=== PATIENT | male | born 1985 | race Caucasian/White ===

== ENCOUNTER 2023-09-17 12:00 | Emergency (ER) | payer MEDICAID, SELFPAY ==
--- NOTE | ~2023-09-17 | CT_ITS ---
EXAMINATION: CT ABDOMEN AND PELVIS WITHOUT CONTRAST CLINICAL INFORMATION: Left flank pain COMPARISON: None available. TECHNIQUE: Multidetector volumetric imaging was performed from the superior aspect of the liver through the pubic symphysis. Sagittal and coronal reformatted images were obtained on the technologist's workstation. This CT examination was performed using dose optimization techniques as appropriate, variously including the following: *Automated exposure control *Adjustment of mA and/or kV according to patient size (this includes techniques or standardized protocols for targeted exams where dose is matched to indication/reason for exam; i.e. extremities or head) *Use of iterative reconstruction technique DLP: 470 mGy-cm FINDINGS: LUNG BASES: The visualized lung bases are unremarkable. LIVER, GALLBLADDER, AND BILIARY TREE: The liver is normal in size, shape, and attenuation. No focal hepatic lesion or biliary ductal dilatation is present. The gallbladder is not visualized. PANCREAS: Unremarkable. SPLEEN: Unremarkable. ADRENAL GLANDS: Unremarkable. KIDNEYS AND URETERS: The kidneys are normal in size, shape, and attenuation. No hydronephrosis, hydroureter, or calculi seen. No perinephric stranding. BLADDER: There is a 2 mm radiopaque calculi left UVJ junction. Without hydroureteronephrosis. The bladder is nondistended. GASTROINTESTINAL TRACT: Scattered stool and gas seen throughout the colon without significant distention. The small bowel loops are normal caliber. Appendix is normal caliber. ABDOMINAL WALL: No significant hernia is appreciated. LYMPH NODES: Normal. VASCULAR: Unremarkable. PELVIC VISCERA: Unremarkable. OSSEOUS STRUCTURES: No aggressive lytic or sclerotic process seen. CT/CT abdomen pelvis wo IV con IMPRESSION: 2 mm left UVJ radiopaque calculi without hydroureteronephrosis and likely cause for left flank pain. Mild constipation. Fleischner guidelines were followed.
[2023-09-17 12:54] VITALS: BP 158/97; PULSE 75; RESP 18; TEMP 37; O2SAT 97; BMI 27.5
--- NOTE | 2023-09-17 13:11 | ED.MALEGU ---
HPI - Male Genitourinary General Chief complaint: Urogenital-Male Stated complaint: R Side Kidney Pain ?UTI Time Seen by Provider: 09/17/23 21:01 Source: patient Mode of arrival: ambulatory Limitations: no limitations History of Present Illness HPI Narrative: Patient comes to the emergency room complaining of intermittent left flank pain. Patient only speaks [place]an. 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 Patient states that for the last 2 days, he has had dysuria, no hematuria, intermittent flank pain and left lower quadrant. Patient denies any testicular pain. Patient denies any concerns with sexually transmitted diseases as he is not sexually active. Patient denies fever or chills. Related Data Previous Rx's Medication Instructions Recorded ketorolac 10 mg tablet 10 mg PO TID PRN pain 5 days #12 09/17/23 tabs ondansetron HCl 4 mg tablet 4 mg PO Q6H PRN nausea and 09/17/23 vomiting #12 tabs prednisone 10 mg tablet 10 mg PO DAILY #3 tabs 09/17/23 tamsulosin 0.4 mg capsule 0.4 mg PO DAILY #14 caps 09/17/23 Allergies Allergy/AdvReac Type Severity Reaction Status Date / Time No Known Allergies Allergy Verified 09/17/23 12:53 Review of Systems Review of Systems: Constitutional : No Weight loss, No Fever, No Chills, No Night Sweats, No Fatigue, No Malaise ENT/Mouth : No Hearing loss, No Ear Pain, No Nasal Congestion, No Sinus Pain, No Hoarseness, No sore throat, No Rhinorrhea, No Swallowing Difficulty Eyes: No Eye Pain, No Swelling, No Redness, No Foreign Body, No Discharge, No Vision Changes Cardiovascular : No Chest Pain, No SOB, No Dyspnea on Exertion, No Orthopnea, No Edema, No Palpitations Respiratory : No Cough, No Sputum, No Wheezing, No Smoke Exposure, No Dyspnea Gastrointestinal : No Nausea, No Vomiting, No Diarrhea, No Constipation, No abdominal Pain, No Hematochezia, No Melena Genitourinary complaining of Dysuria, No Urinary Frequency, No Hematuria, No Urinary Incontinence, No Urgency, complaining of intermittent left Flank Pain, No Urinary Flow Changes, No Hesitancy Musculoskeletal : No joint pain, No Myalgias, No Joint Swelling Skin : No Skin Lesions, No rash Neuro : No Weakness, No Numbness, No Paresthesias, No Loss of Consciousness, No Dizziness, No Headache Psych : No Anxiety/Panic, No Depression, No SI/HI/AH/VH, No Social Issues, Heme/Lymph: No Bruising, No Bleeding,No Lymphadenopathy Endocrine : No Polyuria, No Polydipsia, No Temperature Intolerance [facility] Past Medical History Medical History (Updated 09/17/23 @ 21:25 by Adriana Arnold MD) Hereditary spherocytosis Surgical History (Updated 09/17/23 @ 21:25 by Adriana Arnold MD) History of cholecystectomy H/O splenectomy Physical Exam Vital Signs: Vital Signs: Last Vital Signs Temp 98.3 F 09/17/23 19:35 Pulse 60 09/17/23 19:35 Resp 14 09/17/23 19:35 BP 153/88 H 09/17/23 19:35 Pulse Ox 97 09/17/23 19:35 O2 Del Method Room Air 09/17/23 19:35 BMI result Body Mass Index 27.5 Const: Other: Appearance: Alert. Oriented X3. No acute distress. Well-appearing Eyes: Pupils equal, round and reactive to light. ENT: Pharynx normal. Neck: Normal inspection. Neck supple. No lymph nodes noted. No crepitus CVS: Normal heart rate and rhythm. Pulses normal. Normal S1 and S2 Respiratory: No respiratory distress. Breath sounds normal. No Wheezing. No rales Abdomen: Soft and nontender. No rigidity. No distention. No abdominal pain, no left flank pain at this time Skin: Skin warm and dry. Normal skin color. Normal skin turgor. Extremities: No lower extremity edema. No Lacerations. No Rash Neuro: Oriented X 3. No motor deficit. No sensory deficit. Moving all extremities. No slurred speech. CN 2 through 12 grossly intact Psych: calm, cooperative, normal affect Course Course Course Narrative: This is an RME: Additional HPI, ROS, PE not included below will be deferred to primary provider. This is a 38-year-old male presenting to the emergency department with complaints of pain with urination which started this morning. Also reporting left flank pain. No blood in urine, no history of urinary tract infections. + left sided flank pain. Vital signs stable. Patient is nontoxic appearing. Plan labs, UA, CT abdomen and pelvis. [place] heavy duty press operator (James) [phone] Medical Decision Making Medical Decision Making [facility] Narrative: -my interpretation of labs: A white blood cell count is slightly elevated, likely secondary to reactive leukocytosis. Urinalysis negative for UTI. -my interpretation of CT scan: Positive for stone in the left UVJ -patient was given IM Toradol -patient instructed to follow-up with his primary care physician and Urology Differential Diagnosis Differential Diagnoses: The differential diagnosis associated with the presentation includes (Kidney stone, renal colic, diverticulitis, musculoskeletal pain) Admission/Observation Consideration of admission/observation: Escalation of care including admission/observation considered (Given patient's presentation and history, admission was considered on arrival) Lab Data [facility] Lab Attestation statement: I reviewed the patient's lab results. 09/17/23 15:23 09/17/23 15:23 Labs: Lab Results 09/17/23 Range/Units 15:23 WBC 12.8 H (4.8-10.8) X10*3/uL RBC 5.94 H (4.60-5.80) X10*6/uL Hgb 16.7 (14.0-18.0) g/dl Hct 48.4 (42.0-52.0) % MCV 81.5 (80.0-98.0) fL MCH 28.1 (27.0-33.0) pg MCHC 34.5 (31.0-36.0) g/dl RDW 12.7 (11.0-16.0) % Plt Count 439 H (160-400) X10*3/uL MPV 10.1 (9.4-12.4) fL Immature Gran % (Auto) 0.6 H (0.0-0.4) % Neut % (Auto) 60.0 (45-73) % Lymph % (Auto) 29.2 (20-40) % [place] % (Auto) 8.9 (2-11) % Eos % (Auto) 0.5 (0-4) % Baso % (Auto) 0.8 (0-2) % Lymph # (Auto) 3.7 (1.2-4.9) X10*3/uL [place] # (Auto) 1.1 (0.1-1.2) X10*3/uL Eos # (Auto) 0.1 (0.0-0.4) X10*3/uL Baso # (Auto) 0.1 (0.0-0.2) X10*3/uL Abs Immat Gran (auto) 0.08 H (0.00-0.03) X10*3/uL Absolute Neuts (auto) 7.7 (2.0-8.3) x10*3/uL Absolute Nucleated RBC 0.000 (0.0-0.012) X10*3/uL Nucleated RBC % (auto) 0.0 (0.0-0.2) /100WBC Sodium 141 (135-145) mmol/L Potassium 4.2 (3.3-5.1) mmol/L Chloride 108 (96-108) mmol/L Carbon Dioxide 28 (22-29) mmol/L Anion Gap 9 L (12-20) BUN 11 (9-16) mg/dL Creatinine 0.83 (0.5-1.4) mg/dL Estim Creat Clear Calc 119.5 Estimated GFR > 60 Random Glucose 98 (60-115) mg/dL Calcium 9.6 (8.4-10.2) mg/dL Total Bilirubin 1.3 H (0.0-1.0) mg/dL Direct Bilirubin 0.4 (0.0-0.5) mg/dL AST 25 (5-37) U/L ALT 33 (0-40) U/L Alkaline Phosphatase 86 (39-117) U/L Total Protein 7.7 (6.5-8.0) g/dL Albumin 4.4 (3.5-5.0) g/dL Lipase 16 (8-78) U/L Urine Color Yellow Urine Appearance Clear Urine pH 6.0 (5.0-9.0) Ur Specific [place] 1.015 (1.005-1.025) Urine Protein Negative (Neg-Trace) mg/dL Urine Glucose (UA) Negative (Negative) mg/dL Urine Ketones Negative (Negative) mg/dL Urine Blood Negative (Negative) Urine Nitrite Negative (Negative) Ur Leukocyte Esterase Negative (Negative) Independent Interpretation I performed an independent interpretation of an: CT Scan Radiology Impression Discussion of test interpretation with radiology: I have reviewed the radiologist's reading. Radiologist Impression: FINDINGS: LUNG BASES: The visualized lung bases are unremarkable. LIVER, GALLBLADDER, AND BILIARY TREE: The liver is normal in size, shape, and attenuation. No focal hepatic lesion or biliary ductal dilatation is present. The gallbladder is not visualized. PANCREAS: Unremarkable. SPLEEN: Unremarkable. ADRENAL GLANDS: Unremarkable. KIDNEYS AND URETERS: The kidneys are normal in size, shape, and attenuation. No hydronephrosis, hydroureter, or calculi seen. No perinephric stranding. BLADDER: There is a 2 mm radiopaque calculi left UVJ junction. Without hydroureteronephrosis. The bladder is nondistended. GASTROINTESTINAL TRACT: Scattered stool and gas seen throughout the colon without significant distention. The small bowel loops are normal caliber. Appendix is normal caliber. ABDOMINAL WALL: No significant hernia is appreciated. LYMPH NODES: Normal. VASCULAR: Unremarkable. PELVIC VISCERA: Unremarkable. OSSEOUS STRUCTURES: No aggressive lytic or sclerotic process seen. CT/CT abdomen pelvis wo IV con IMPRESSION: 2 mm left UVJ radiopaque calculi without hydroureteronephrosis and likely cause for left flank pain. Mild constipation. Independent Historian Clinical information obtained from an independent historian. History obtained from or confirmed by: Other (In-house heavy duty press operator) Critical Care Time Critical Care Time Critical Care Time: Yes Total Critical Care Time: 45 Attestation: I have personally provided critical care time. Time includes review of lab data, radiology results, discussion with consultants, and monitoring for potential decompensation. Intervention performed as documented. Discharge Plan Discharge Clinical Impression: Kidney stone Patient Disposition: Home, Self-Care Instructions: Kidney Stones (ED) Additional Instructions: Please follow-up with your primary care physician tomorrow. If you have any worsening or new symptoms, please return to the emergency room or call 911 Prescriptions: New ketorolac 10 mg tablet 10 mg PO TID PRN (Reason: pain) 5 Days Qty: 12 0RF tamsulosin 0.4 mg capsule 0.4 mg PO DAILY Qty: 14 0RF ondansetron HCl 4 mg tablet 4 mg PO Q6H PRN (Reason: nausea and vomiting) Qty: 12 0RF prednisone 10 mg tablet 10 mg PO DAILY Qty: 3 0RF
[2023-09-17 15:45] LABS: MANUAL DIFF FLAG NO
[2023-09-17 15:47] LABS: Basophils Absolute Auto 0.1 X10*3/uL (0.0-0.2); Basophils Percent Auto 0.8 % (0-2); Eosinophils Absolute Auto 0.1 X10*3/uL (0.0-0.4); Eosinophils Percent Auto 0.5 % (0-4); Hematocrit 48.4 % (42.0-52.0); Hemoglobin 16.7 g/dl (14.0-18.0); Imm Gran Abs Auto 0.08 X10*3/uL (0.00-0.03); Imm Gran Pct Auto 0.6 % (0.0-0.4); Lymphocytes Absolute Auto 3.7 X10*3/uL (1.2-4.9); Lymphocytes Percent Auto 29.2 % (20-40); Mean Corpuscular HGB Conc 34.5 g/dl (31.0-36.0); Mean Corpuscular Hemoglobin 28.1 pg (27.0-33.0); Mean Corpuscular Volume 81.5 fL (80.0-98.0); Mean Platelet Volume 10.1 fL (9.4-12.4); Monocytes Absolute Auto 1.1 X10*3/uL (0.1-1.2); Monocytes Percent Auto 8.9 % (2-11); Neutrophils Absolute Auto 7.7 x10*3/uL (2.0-8.3); Platelet Count 439 X10*3/uL (160-400); Red Blood Count 5.94 X10*6/uL (4.60-5.80); Red Cell Distribution Width 12.7 % (11.0-16.0); White Blood Count 12.8 X10*3/uL (4.8-10.8)
[2023-09-17 15:48] LABS: Appearance Urine Clear; Color Urine Yellow; Glucose Urine UA Negative (Negative); Leukocyte Esterase Urine Negative (Negative); Nitrite Urine Negative (Negative); Specific Gravity - Urine 1.015 (1.005-1.025); Urine Blood Negative (Negative); Urine Ketones Negative (Negative); Urine Protein Negative (Neg-Trace)
[2023-09-17 16:05] LABS: Alanine Aminotransferase 33 U/L (0-40); Albumin Level 4.4 g/dL (3.5-5.0); Alkaline Phosphatase 86 U/L (39-117); Anion Gap 9 (12-20); Aspartate Amino Transferase 25 U/L (5-37); Bilirubin Direct 0.4 mg/dL (0.0-0.5); Bilirubin Total 1.3 mg/dL (0.0-1.0); Blood Urea Nitrogen 11 mg/dL (9-16); Calcium 9.6 mg/dL (8.4-10.2); Carbon Dioxide 28 mmol/L (22-29); Chloride 108 mmol/L (96-108); Creatinine Clr Calc Pharmacy 119.5; Estimated Glomerular Filt Rate > 60; Glucose Random 98 mg/dL (60-115); Lipase 16 U/L (8-78); Potassium 4.2 mmol/L (3.3-5.1); Sodium 141 mmol/L (135-145); Total Protein 7.7 g/dL (6.5-8.0)
[2023-09-17 19:35] VITALS: BP 153/88; PULSE 60; RESP 14; TEMP 36.8; O2SAT 97
[2023-09-17] MEDS: Ketorolac Tromethamine 60 MG/2 ML VIAL IM (21:27)
== END 2023-09-17 21:51 | disposition home or self-care (01) ==
LOC: HO.ED 21:44
PROVIDERS: Physician Assistant Medical; Emergency Provider Emergency Medicine
DX: N13.2 Hydronephrosis with renal and ureteral calculous obstruction (principal); R10.9 Unspecified abdominal pain
CPT/HCPCS: 36415; 74176; 80048; 80076; 81003; 83690; 85025; 96372; 99284; J1885

== ENCOUNTER 2024-01-02 22:01 | Emergency (ER) | payer MEDICAID, SELFPAY ==
--- NOTE | ~2024-01-02 | CT_ITS ---
EXAMINATION: CT ABDOMEN AND PELVIS WITH CONTRAST CLINICAL INFORMATION: Abdominal pain and tenderness. COMPARISON: None available. TECHNIQUE: Multidetector volumetric images were obtained from the superior aspect of the liver through the pubic symphysis following administration 85 mL of Omnipaque 350 intravenous contrast. Sagittal and coronal reformatted images were obtained on the technologist's workstation. Oral contrast: No This CT examination was performed using dose optimization techniques as appropriate, variously including the following: *Automated exposure control *Adjustment of mA and/or kV according to patient size (this includes techniques or standardized protocols for targeted exams where dose is matched to indication/reason for exam; i.e. extremities or head) *Use of iterative reconstruction technique DLP: 501 mGy-cm FINDINGS: LUNG BASES: The visualized lung bases are unremarkable. LIVER, GALLBLADDER, AND BILIARY TREE: The liver is normal in size, shape, and attenuation. No focal hepatic lesion or biliary ductal dilatation is present. There has been a previous cholecystectomy. PANCREAS: Unremarkable. SPLEEN: The spleen is not seen. ADRENAL GLANDS: Unremarkable. KIDNEYS AND URETERS: The kidneys are normal in size, shape, and attenuation. No hydronephrosis, hydroureter, or calculi seen. No perinephric stranding. There is a subcentimeter cyst upper pole left kidney. BLADDER: Unremarkable. GASTROINTESTINAL TRACT: The small and large bowel are unremarkable. The appendix is unremarkable. ABDOMINAL WALL: No significant hernia is appreciated. LYMPH NODES: Normal. VASCULAR: Unremarkable. PELVIC VISCERA: Unremarkable. OSSEOUS STRUCTURES: Unremarkable. CT/CT abdomen pelvis w IV con IMPRESSION: No significant abnormality. Fleischner guidelines were followed.
[2024-01-02 22:41] VITALS: BP 145/84; PULSE 66; RESP 14; TEMP 36.8; O2SAT 97; BMI 27.6
[2024-01-02 23:44] LABS: MANUAL DIFF FLAG NO
[2024-01-02 23:46] LABS: Basophils Absolute Auto 0.1 X10*3/uL (0.0-0.2); Basophils Percent Auto 0.8 % (0-2); Eosinophils Absolute Auto 0.1 X10*3/uL (0.0-0.4); Eosinophils Percent Auto 0.9 % (0-4); Hematocrit 42.7 % (42.0-52.0); Hemoglobin 14.9 g/dl (14.0-18.0); Imm Gran Abs Auto 0.04 X10*3/uL (0.00-0.03); Imm Gran Pct Auto 0.3 % (0.0-0.4); Lymphocytes Absolute Auto 4.8 X10*3/uL (1.2-4.9); Lymphocytes Percent Auto 40.9 % (20-40); Mean Corpuscular HGB Conc 34.9 g/dl (31.0-36.0); Mean Corpuscular Hemoglobin 28.1 pg (27.0-33.0); Mean Corpuscular Volume 80.4 fL (80.0-98.0); Mean Platelet Volume 9.9 fL (9.4-12.4); Monocytes Absolute Auto 1.1 X10*3/uL (0.1-1.2); Neutrophils Absolute Auto 5.7 x10*3/uL (2.0-8.3); Neutrophils Percent Auto 48.1 % (45-73); Platelet Count 366 X10*3/uL (160-400); Red Blood Count 5.31 X10*6/uL (4.60-5.80); Red Cell Distribution Width 12.5 % (11.0-16.0); White Blood Count 11.7 X10*3/uL (4.8-10.8)
[2024-01-02 23:59] LABS: Appearance Urine Clear; Color Urine Yellow; Glucose Urine UA Negative (Negative); Leukocyte Esterase Urine Negative (Negative); Nitrite Urine Negative (Negative); PH 5.5 (5.0-9.0); Specific Gravity - Urine >= 1.030 (1.005-1.025); UMIC TRIGGER UACC YES; Urine Blood Trace (Negative); Urine Ketones Trace mg/dL (Negative); Urine Protein Negative (Neg-Trace)
[2024-01-03] LABS: Alanine Aminotransferase 39 U/L (0-40); Alkaline Phosphatase 70 U/L (39-117); Anion Gap 10 (12-20); Aspartate Amino Transferase 23 U/L (5-37); Bilirubin Total 1.2 mg/dL (0.0-1.0); Blood Urea Nitrogen 12 mg/dL (9-16); Calcium 9.3 mg/dL (8.4-10.2); Carbon Dioxide 26 mmol/L (22-29); Chloride 109 mmol/L (96-108); Creatinine Clr Calc Pharmacy 122.7; Estimated Glomerular Filt Rate > 60; Glucose Random 89 mg/dL (60-115); Potassium 3.9 mmol/L (3.3-5.1); Sodium 141 mmol/L (135-145); Total Protein 6.8 g/dL (6.5-8.0)
[2024-01-03 00:06] LABS: Bacteria Urine None Seen (None Seen); Hyaline Casts Urine 0-2 /LPF (0-2); Squamous Epithelial Cell Urine 0-2 /HPF (0-2); WBC Urine 0-5 /HPF (0-5)
[2024-01-03 01:53] VITALS: BP 135/86; PULSE 61; RESP 16; TEMP 36.8; O2SAT 97
--- NOTE | 2024-01-03 03:54 | ED.MALEGU ---
HPI - Male Genitourinary General Chief complaint: Urogenital-Male Stated complaint: kidney stone? both sides hurt. 10-11 days Time Seen by Provider: 01/03/24 03:54 History of Present Illness HPI Narrative: The patient is a 38-year-old male who was originally from [place] and who speaks [place]. 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 Two history of abdominal surgery with a cholecystectomy and a splenectomy. The patient was treated this hospital 3 months ago in September of 2023 for sided 2 mm ureteral stone. The patient presents today with what he indicates is bilateral flank and abdominal pain that has been bothering him intermittently for the last 10-11 days. This does not feel exactly like his kidney stones. He has not had nausea or vomiting. He denies any injury. No fever, sweats, chills. No diarrhea. At the time I was interviewing him he said the pain had resolved. Related Data Previous Rx's Medication Instructions Recorded ketorolac 10 mg tablet 10 mg PO TID PRN pain 5 days #12 09/17/23 tabs ondansetron HCl 4 mg tablet 4 mg PO Q6H PRN nausea and 09/17/23 vomiting #12 tabs prednisone 10 mg tablet 10 mg PO DAILY #3 tabs 09/17/23 tamsulosin 0.4 mg capsule 0.4 mg PO DAILY #14 caps 09/17/23 Allergies Allergy/AdvReac Type Severity Reaction Status Date / Time No Known Allergies Allergy Verified 01/02/24 22:41 Review of Systems Review of Systems: Yes all other systems are reviewed and are negative [facility] Past Medical History Medical History (Updated 01/03/24 @ 08:06 by Hao Lima MD) Hereditary spherocytosis Surgical History (Updated 09/17/23 @ 21:25 by Adriana Arnold MD) History of cholecystectomy H/O splenectomy Social History Social History Smoked in Last 30 Days: No Advance Directives: No Advance Directives Information Provided: Yes Physical Exam Vital Signs: Vital Signs: Last Vital Signs Temp 97.5 F 01/03/24 08:27 Pulse 59 01/03/24 08:27 Resp 16 01/03/24 08:27 BP 152/94 H 01/03/24 08:27 Pulse Ox 96 01/03/24 08:27 O2 Del Method Room Air 01/03/24 08:27 BMI result Body Mass Index 27.6 Const: Other: The patient seemed to be resting peacefully on the stretcher. HEENT: Other: The face is symmetrical. Mucous membranes moist. Eyes: Other: Pupils are round equal, conjunctivae are clear Neck: Other: No cervical adenopathy, moving his neck easily Resp: Other: Lungs are clear bilaterally Cardio: Other: The patient has a regular rate and rhythm with no murmur GI: Other: There is a horizontally oriented scar across the mid abdomen a couple of cm above the umbilicus. Flat and soft. Mild bilateral lower abdominal tenderness. : General: Yes no CVA tenderness Back/Spine/Pelvis: Back: no CVA tenderness Skin: Other: Skin is dry and unremarkable Neuro: Other: The patient is awake and alert. Face is symmetrical. Speech seems clear. He moves his extremities symmetrically. Gait is normal. He is grossly neurologically intact. Extrem: Other: No peripheral edema Medications Administered Discontinued Medications Generic Name Dose Route Start Last Admin Trade Name Freq PRN Reason Stop Dose Admin Iohexol 85 ml 01/03/24 05:30 01/03/24 05:30 Iohexol 350 Mg/Ml 100 Ml Infus..Btl IV 01/03/24 05:31 85 ml ONCE ONE Administration Medical Decision Making Medical Decision Making [facility] Narrative: The patient is a 38-year-old who presents with 10-11 days of what he indicates is bilateral flank and abdominal pain. He has a remote history of a cholecystectomy and splenectomy. I was not really able to find out why he had has splenectomy. He seemed to indicate that the splenectomy had been done at the time of his cholecystectomy splenectomy was done because of the spleen did not look very healthy at the time of his cholecystectomy. More recently the patient was treated at this hospital 3 months ago for a ureteral stone. Clinically the patient has physical exam seemed fairly reassuring. Labs were unremarkable including a CBC, basic metabolic panel, LFTs, lipase, and C-reactive protein. Urine showed trace ketones, 3-5 red cells. My overall impression was that the patient was probably not having a recurrent ureteral stone problem. My overall impression was the patient probably was not having an acute surgical process. However the patient seemed concerned that he had had pain for so long and he was interested in having a CT scan to evaluate his abdomen. A CT of the abdomen and pelvis was done (with IV contrast since I had a low suspicion for kidney stone). This CT was unremarkable. Given his unremarkable a CT and is unremarkable labs and an overall benign clinical appearance I felt he could be discharged. He was encouraged to get a regular doctor. He should return if worse. Lab Data 01/02/24 23:40 01/02/24 23:40 Labs: Lab Results 01/02/24 01/02/24 Range/Units 23:40 23:44 WBC 11.7 H (4.8-10.8) X10*3/uL RBC 5.31 (4.60-5.80) X10*6/uL Hgb 14.9 (14.0-18.0) g/dl Hct 42.7 (42.0-52.0) % MCV 80.4 (80.0-98.0) fL MCH 28.1 (27.0-33.0) pg MCHC 34.9 (31.0-36.0) g/dl RDW 12.5 (11.0-16.0) % Plt Count 366 (160-400) X10*3/uL MPV 9.9 (9.4-12.4) fL Immature Gran % (Auto) 0.3 (0.0-0.4) % Neut % (Auto) 48.1 (45-73) % Lymph % (Auto) 40.9 H (20-40) % [place] % (Auto) 9.0 (2-11) % Eos % (Auto) 0.9 (0-4) % Baso % (Auto) 0.8 (0-2) % Lymph # (Auto) 4.8 (1.2-4.9) X10*3/uL [place] # (Auto) 1.1 (0.1-1.2) X10*3/uL Eos # (Auto) 0.1 (0.0-0.4) X10*3/uL Baso # (Auto) 0.1 (0.0-0.2) X10*3/uL Abs Immat Gran (auto) 0.04 H (0.00-0.03) X10*3/uL Absolute Neuts (auto) 5.7 (2.0-8.3) x10*3/uL Absolute Nucleated RBC 0.000 (0.0-0.012) X10*3/uL Nucleated RBC % (auto) 0.0 (0.0-0.2) /100WBC Sodium 141 (135-145) mmol/L Potassium 3.9 (3.3-5.1) mmol/L Chloride 109 H (96-108) mmol/L Carbon Dioxide 26 (22-29) mmol/L Anion Gap 10 L (12-20) BUN 12 (9-16) mg/dL Creatinine 0.81 (0.5-1.4) mg/dL Estim Creat Clear Calc 122.7 Estimated GFR > 60 Random Glucose 89 (60-115) mg/dL Calcium 9.3 (8.4-10.2) mg/dL Total Bilirubin 1.2 H (0.0-1.0) mg/dL AST 23 (5-37) U/L ALT 39 (0-40) U/L Alkaline Phosphatase 70 (39-117) U/L C-Reactive Protein 0.12 (< or = 0.50) mg/dL Total Protein 6.8 (6.5-8.0) g/dL Albumin 4.0 (3.5-5.0) g/dL Lipase 19 (8-78) U/L Urine Color Yellow Urine Appearance Clear Urine pH 5.5 (5.0-9.0) Ur Specific [place] >= 1.030 H (1.005-1.025) Urine Protein Negative (Neg-Trace) mg/dL Urine Glucose (UA) Negative (Negative) mg/dL Urine Ketones Trace (Negative) mg/dL Urine Blood Trace H (Negative) Urine Nitrite Negative (Negative) Ur Leukocyte Esterase Negative (Negative) Urine RBC 3-5 H (0-2) /HPF Urine WBC 0-5 (0-5) /HPF Ur Squamous Epith Cells 0-2 (0-2) /HPF Urine Bacteria None Seen (None Seen) Hyaline Casts 0-2 (0-2) /LPF Discharge Plan Discharge Clinical Impression: Abdominal pain Patient Disposition: Home, Self-Care Additional Instructions: Your testing today is reassuring. There is no sign of any dangerous process at work. I do not think your pain today is related to a kidney stone. You may use [id number] acetaminophen and/or ibuprofen as needed for discomfort. Please work on getting a regular primary care doctor. Return to the emergency room if you feel significantly worse. Prescriptions: No Action ketorolac 10 mg tablet 10 mg PO TID PRN (Reason: pain) 5 Days Qty: 12 0RF tamsulosin 0.4 mg capsule 0.4 mg PO DAILY Qty: 14 0RF ondansetron HCl 4 mg tablet 4 mg PO Q6H PRN (Reason: nausea and vomiting) Qty: 12 0RF prednisone 10 mg tablet 10 mg PO DAILY Qty: 3 0RF Interventions: ED Discharge Assessment Last Done: 01/03/24 08:27 Discharge Date/Time: 01/03/24 08:27
[2024-01-03 04:40] LABS: C Reactive Protein 0.12 mg/dL (< or = 0.50); Lipase 19 U/L (8-78)
[2024-01-03] MEDS: iohexoL 350 MG/ML 100 ML INFUS..BTL 85 ML IV (05:30)
[2024-01-03 05:43] VITALS: BP 129/76; PULSE 56; RESP 16; TEMP 36.8; O2SAT 96
[2024-01-03 07:32] VITALS: BP 134/79; PULSE 57; RESP 18; TEMP 36.4; O2SAT 96
[2024-01-03 08:27] VITALS: BP 152/94; PULSE 59; RESP 16; TEMP 36.4; O2SAT 96
== END 2024-01-03 08:27 | disposition home or self-care (01) ==
PROVIDERS: Emergency Provider Emergency Medicine
DX: R10.9 Unspecified abdominal pain (principal); Z87.442 Personal history of urinary calculi; Z90.49 Acquired absence of other specified parts of digestive tract; Z90.81 Acquired absence of spleen
CPT/HCPCS: 36415; 74177; 80053; 81001; 81003; 83690; 85025; 86140; 99284; Q9967

== ENCOUNTER 2024-05-03 14:19 | Emergency (ER) | payer MEDICAID, SELFPAY ==
--- NOTE | ~2024-05-03 | CT_ITS ---
EXAMINATION: CT KNEE WITHOUT CONTRAST, LEFT CLINICAL INFORMATION: Tibial plateau fracture COMPARISON: X-ray 05/03/2024 TECHNIQUE: Axial imaging. Sagittal and coronal reconstructions. This CT examination was performed using dose optimization techniques as appropriate, variously including the following: *Automated exposure control *Adjustment of mA and/or kV according to patient size (this includes techniques or standardized protocols for targeted exams where dose is matched to indication/reason for exam; i.e. extremities or head) *Use of iterative reconstruction technique DLP: 165 mGy-cm FINDINGS: There is a acute, avulsion fracture from the lateral aspect of the lateral tibial plateau, with fractured ossific fragments displaced laterally by approximately 0.6 cm. Subtle fracture involving the lateral aspect the tibial plateau articular surface is difficult to exclude.. No additional fractures identified. Moderate lipohemarthrosis. Evaluation of the intra-articular soft tissue structures limited on CT. The ACL is not clearly identified, concerning for a tear. PCL grossly appears intact. The quadriceps and patellar tendon are grossly intact. Limited evaluation of the collateral ligaments. Subcutaneous edema present. CT/CT knee LT wo IV con IMPRESSION: Acute, avulsion fracture of the lateral aspect lateral tibial plateau, with bony displacement as detailed above. The findings are suggestive of a Segond fracture. This fracture can be associated with intra-articular derangement such as ACL tear, meniscal tear, lateral collateral ligament complex tearing. ACL tear is suspected on these images. Moderate lipohemarthrosis. Recommend MRI evaluation and orthopedic consultation.
--- NOTE | ~2024-05-03 | XR_ITS ---
EXAMINATION: XR KNEE, LEFT CLINICAL INFORMATION: Playing soccer 4-5 days ago and fell COMPARISON: None available. TECHNIQUE: Four views of the left knee. FINDINGS: Moderate-sized joint effusion is present. There is an avulsion fracture arising from the lateral tibial plateau. In addition, there is a slight offset in the cortex in the lateral tibial plateau (see schumacher image) suggesting possibly a tibial plateau fracture. This could be confirmed with CT. No other fractures are seen. No chondrocalcinosis. XR/XR knee LT 3V IMPRESSION: Avulsion fracture lateral tibial plateau with possible tibial plateau fracture. CT scan is recommended for further evaluation.
[2024-05-03 14:26] VITALS: BP 160/96; PULSE 75; RESP 18; TEMP 36.4; O2SAT 97; BMI 27.3
--- NOTE | 2024-05-03 14:27 | ED_ITS ---
HPI - Extremity Injury (Lower) General Chief Complaint: Extremity Injury, Lower Stated Complaint: L knee inj Time Seen by Provider: 05/03/24 16:02 Source: patient and picture enlarger Mode of arrival: wheelchair Limitations: language barrier History of Present Illness ED Provider: julian HPI Narrative: Patient is a 39-year-old Gambian speaking male presenting to the emergency department with complaint of left knee and lower leg pain for the past 4 days. He states that was playing soccer when another player's knee collided with his left knee and he has had pain and swelling since that time. He borrowed a knee immobilizer and crutches from a neighbor in his [place] community. He has been icing the area with some decrease in swelling. Denies numbness or tingling. States pain has been worsening and he is unable to bear weight. Assessment done with in-person Gambian picture enlarger. complaint: knee injury Onset (ago): day(s) Injury: Left: knee Severity: severe Relieving factors: cold therapy Exacerbating factors: movement and palpation Context: direct blow Associated symptoms: swelling and unable to bear weight Other symptoms: none Treatments prior to arrival: cold therapy and splint Related Data Previous Rx's ?Medication ?Instructions ?Recorded ketorolac 10 mg tablet 10 mg PO TID PRN pain 5 days #12 09/17/23 tabs ondansetron HCl 4 mg tablet 4 mg PO Q6H PRN nausea and 09/17/23 vomiting #12 tabs prednisone 10 mg tablet 10 mg PO DAILY #3 tabs 09/17/23 tamsulosin 0.4 mg capsule 0.4 mg PO DAILY #14 caps 09/17/23 Allergies Allergy/AdvReac Type Severity Reaction Status Date / Time No Known Allergies Allergy Verified 05/03/24 14:34 Review of Systems Review of Systems: As per HPI. Yes all other systems are reviewed and are negative Constitutional: Constitutional: Reports as per HPI [facility] Past Medical History Medical History (Updated 05/03/24 @ 17:40 by Radha Beckford NP) Hereditary spherocytosis Surgical History (Updated 09/17/23 @ 21:25 by Adriana Arnold MD) History of cholecystectomy H/O splenectomy Social History Social History Advance Directives: No Advance Directives Information Provided: No Do you have a plan to hurt others: No Plan Physical Exam Vital Signs: Vital Signs: Last Vital Signs Temp 98.5 F 05/03/24 16:00 Pulse 62 05/03/24 16:00 Resp 16 05/03/24 16:00 BP 129/86 05/03/24 16:00 Pulse Ox 97 05/03/24 16:00 O2 Del Method Room Air 05/03/24 16:00 BMI result Body Mass Index 27.3 Vital signs have been reviewed and appear to be correct. Blood pressure normal. Heart rate normal. Respiratory rate normal. Temperature normal. Oxygen saturation normal. Const: General: cooperative, healthy appearing and no acute distress Orientation/consciousness: oriented to person, oriented to place, oriented to time and patient oriented x3 Limitations: no limitations HEENT: Head: Yes normocephalic and Yes atraumatic Ears: external ears normal General nose exam: Normal external nose present Face and sinus: Yes face symmetric Mouth: oropharynx normal and moist mucous membranes Throat: Yes uvula midline Eyes: Pupils: Equal, round and reactive pupils present Neck: Neck: Yes normal visual inspection and Yes supple Resp: Effort & Inspection: normal respiratory effort and able to speak in complete sentences Auscultation: clear to auscultation bilaterally Cardio: Rate: regular rate Rhythm: regular rhythm Heart sounds: S1 normal heart sound present and S2 normal heart sound present GI: Palpation (GI): Soft to palpation and nontender Auscultation: normoactive bowel sounds : General: Yes no CVA tenderness Back/Spine/Pelvis: Back: no CVA tenderness Skin: General skin exam: elasticity normal and turgor normal Neuro: General: oriented to person, oriented to place, oriented to time, patient oriented x3, moves all extremities, no focal motor deficits and CN's II- XI intact bilaterally Cranial nerves: Yes Equal, round and reactive pupils present Cognition (Neuro): normal cognition Extrem: General: Yes full ROM, Yes no pedal edema and Yes no calf tenderness Left lower extremity: knee (unable to assess ligaments due to pain, arrived with knee in immobilizer) Details: tenderness Location: of the proximal tibia, swelling Location: of the proximal tibia and ecchymosis proximal lower leg anterior and foot Details: normal capillary refill, toes with normal ROM and vascular exam Details: dorsalis pedis pulse present and posterior tibial pulse present Psych: Mental Status: mental status grossly normal Affect: normal affect Thought process: Normal thought process present Course Course Course Narrative: This is an RME: Additional HPI, ROS, PE not included below will be deferred to primary provider. RME assessment and note performed by: Christy Durbin PA-C This is a 39 y/o luxembourger speaking male, who presents to the ER with complaints of left knee pain x 4 days. Reports that he was playing soccer and another players knee hit his left knee. He presents in knee immobilizer and crutches that belongs to his brother. He has TTP overlying left medial and lateral joint line with edema and ecchymosis noted. Plan: xrays. Medical Decision Making Medical Decision Making [facility] Narrative: Patient is a 39-year-old [place]ian speaking male presenting to the emergency department with complaint of left knee and lower leg pain for the past 4 days. On exam patient is awake, A+Ox3, VS WNL, afebrile, normal neurological exam without focal deficits, physical exam findings as above. Given reported symptoms and physical exam findings, initial differential includes left knee contusion, sprain, fracture, dislocation, effusion. X-ray notable for avulsion fracture of lateral tibial plateau with possible tibial plateau fracture. My interpretation is in agreement with the radiologist's interpretation. Case discussed with valencia Tavera who is in agreement with placing patient in knee immobilizer, non weightbearing until ortho follow up. Will obtain CT while patient is in the ED as recommended by radiologist. Per Ayse patient can be discharged from the ED prior to results of CT. Patient already in knee immobilizer, ensured adequate fit by nursing. Patient provided with crutch teaching and ensured by nursing that crutches are appropriate height. Advised patient to alternate Tylenol ibuprofen, apply ice intermittently, keep leg elevated while at rest. Follow-up with orthopedics for further evaluation and management. Return precautions discussed at bedside. Patient verbalized understanding of and agreement with plan. Differential Diagnosis Differential Diagnoses: The differential diagnosis associated with the presentation includes As per [facility] Admission/Observation Consideration of admission/observation: Escalation of care including admission/observation considered Patient would have been admitted to the hospital had their work up had any f indings where hospital admission was appropriate and their clinical presentation warranted hospital admission. Consult Healthcare Provider Management of the patient was discussed with: Cabin Crew (valencia Tavera) Independent Interpretation I performed an independent interpretation of an: Plain X-Ray Interpretation: X-ray notable for avulsion fracture of lateral tibial plateau with possible tibial plateau fracture. Radiology Impression Discussion of test interpretation with radiology: I have reviewed the radiologist's reading. Radiologist Impression: FINDINGS: Moderate-sized joint effusion is present. There is an avulsion fracture arising from the lateral tibial plateau. In addition, there is a slight offset in the cortex in the lateral tibial plateau (see schumacher image) suggesting possibly a tibial plateau fracture. This could be confirmed with CT. No other fractures are seen. No chondrocalcinosis. XR/XR knee LT 3V IMPRESSION: Avulsion fracture lateral tibial plateau with possible tibial plateau fracture. CT scan is recommended for further evaluation. External Record Review External record reviewed: Inpatient record, Office record and Outpatient record Discharge Plan Discharge Clinical Impression: Fracture of tibial plateau, closed Patient Disposition: Home, Self-Care Instructions: Crutch Instructions (ED), Knee Immobilizer (ED) Additional Instructions: You have been evaluated in the emergency department today for left knee pain. Your x-rays showed a fracture of your left tibia. You were placed in a knee immobilizer which you need to keep on until you see orthopedics. YOU CANNOT PUT ANY WEIGHT ON YOUR LEFT LEG. We have provided crutches for you to use until you see the orthopedic doctors. Call their office first thing in the morning to schedule a follow up appointment. Please rest, ice, and elevate your leg. We recommend you take 600mg ibuprofen every 6 hours or 650mg Tylenol every 6 hours as needed for pain. If needed you can alternate these medications as they take 1 medication every 3 hours. For instance at noon take ibuprofen, then at 3:00 p.m. take Tylenol, then at 6:00 p.m. take ibuprofen. Please schedule an appointment for follow-up with your primary care provider this week. Return to the emergency department if you experience worsening pain, numbness, tingling, change of color in your leg, or any other concerning symptoms. Prescriptions: No Action ketorolac 10 mg tablet 10 mg PO TID PRN (Reason: pain) 5 Days Qty: 12 0RF tamsulosin 0.4 mg capsule 0.4 mg PO DAILY Qty: 14 0RF ondansetron HCl 4 mg tablet 4 mg PO Q6H PRN (Reason: nausea and vomiting) Qty: 12 0RF prednisone 10 mg tablet 10 mg PO DAILY Qty: 3 0RF Referrals: [facility] [place] [facility] [[place] Group] [facility] [Provider Group] [facility] [Provider Group] Stand Alone Forms: Work/School Release Print Language: Gambian
[2024-05-03 16:00] VITALS: BP 129/86; PULSE 62; RESP 16; TEMP 36.9; O2SAT 97
[2024-05-03 18:00] VITALS: BP 142/87; PULSE 76; RESP 18; TEMP 36.6; O2SAT 98
--- NOTE | 2024-05-03 19:10 | PC.NURSE ---
pt refused knee immobilizer and crutches, wants to use the borrowed ones
[2024-05-03 19:48] VITALS: BP 142/87; PULSE 76; RESP 18; TEMP 36.6; O2SAT 98
== END 2024-05-03 19:50 | disposition home or self-care (01) ==
PROVIDERS: Emergency Provider Emergency Medicine
DX: S82.142A Displaced bicondylar fracture of left tibia, initial encounter for closed fracture (principal); M25.562 Pain in left knee; X58.XXXA Exposure to other specified factors, initial encounter; Y29.XXXA Contact with blunt object, undetermined intent, initial encounter; Y93.66 Activity, soccer; Y92.322 Soccer field as the place of occurrence of the external cause; Y99.8 Other external cause status
CPT/HCPCS: 73562; 73700; 99283; 99284

== ENCOUNTER 2024-05-05 08:27 | Outpatient (AMB) | payer MEDICAID, SELFPAY ==
[2024-05-05 08:32] VITALS: BMI 27.3
--- NOTE | 2024-05-05 08:32 | MHC.OFFVIS ---
Vital Signs 05/05/24 08:32 Height 5 ft 6 in Weight 169 lb BMI 27.3 Intake Visit Reasons: FC - left knee inj, DOI 04/29/24 Intake Note: Leonard a 39 year old male who presents today for an ER follow up of left knee injury. Patient reports a few days prior to his ER visit he was playing soccer when another player's knee collided with his left knee. He presented to [facility] where xrays were taken, placed in a knee immobilizer and referred to orthopedics. His pain has improved a little the past two days. He is unable to place any weight on his foot. Allergies No Known Allergies Allergy (Verified 05/05/24 08:48) Medication List - Last Reconciled 05/05/24 by Ayse Bragg PA-C ketorolac 10 mg PO TID PRN 5 days ondansetron HCl 4 mg PO Q6H PRN prednisone 10 mg PO DAILY tamsulosin 0.4 mg PO DAILY HPI HPI FC - left knee inj, DOI 04/29/24: Details: The patient is a 39-year-old male who presents today for an ER follow up of left knee injury, DOI 04/29/24. He reports that while playing soccer a few days before his ER visit, his left knee was collided by the knee of another player. He was seen at the [facility], where x-rays were obtained, a knee immobilizer was installed, and referred to orthopedics. He has slight improvement in his pain in the past two days. He is unable to bear any weight on his foot. He reports his knee did not instantly swell up after the collision with another player. He denies any history of knee injury in the past. He reports mild tenderness in his left knee. He has been feeling discomfort when he tries to sit in the restroom. He wears kneecap with mild relief. He works at [employer]. [facility] [facility] Medical History (Updated 05/05/24 @ 09:35 by Ayse Bragg PA-C) Hereditary spherocytosis Surgical History History of cholecystectomy H/O splenectomy Social History (Updated 05/05/24 @ 08:45 by ALEX Holbrook) Patient Tobacco Use Status: Never used Tobacco Current occupational status: employed Review of Systems Const All systems reviewed & are unremarkable except as noted in HPI and below Physical Exam Vital Signs: BMI result Body Mass Index 27.3 Const General: cooperative, healthy appearing, comfortable and no acute distress Orientation/consciousness: patient oriented x3 Neck Neck: Yes normal visual inspection and Yes no JVD Chest Chest palpation & inspection: normal inspection of the chest Resp Effort & Inspection: normal respiratory effort Auscultation: clear to auscultation bilaterally, crackles (no), rales (no), rhonchi (no) and wheezes (no) Cardio Jugular venous distension: no JVD Rate: regular rate Rhythm: regular rhythm Heart sounds: S1 normal heart sound present, S2 normal heart sound present, Murmur heart sound present (no) and Rub heart sound present (no) Peripheral pulses: Peripheral pulses 2+ throughout Neuro General: patient oriented x3 Extrem Other: Left knee: Skin intact, no erythema or joint effusion. tenderness over the lateral aspect of the knee along with LCL. He also has medial joint line tendernes and increased laxity. He also has medial joint line tenderness and increase laxity with anterior drawer when compared to contralateral side. He can full extend the knee, I can passively flex to 90. NVI. General: Yes normal to inspection, Yes no pedal edema and Yes no calf tenderness Psych Appearance: grossly normal Mental Status: mental status grossly normal Speech and movement: Normal speech and movement present Results Reviewed Results Reviewed: XR knee LT 3V IMPRESSION: Avulsion fracture lateral tibial plateau with possible tibial plateau fracture. CT scan is recommended for further evaluation. CT knee LT wo IV con IMPRESSION: Acute, avulsion fracture of the lateral aspect lateral tibial plateau, with bony displacement as detailed above. The findings are suggestive of a Segond fracture. This fracture can be associated with intra-articular derangement such as ACL tear, meniscal tear, lateral collateral ligament complex tearing. ACL tear is suspected on these images. Moderate lipohemarthrosis. Recommend MRI evaluation and orthopedic consultation. Assessment & Plan Assessment & Plan (1) Internal derangement of left knee: Code(s): M23.92 - Unspecified internal derangement of left knee Category: Medical Plan We discussed the extent of his injury and options available, which include stat MRI of the left knee to further evaluate the extent of the injury, including the ligamentous structures. He will discontinue the use of the left knee immobilizer. He was fit for a hinged knee brace, and I stressed the importance of working on quad activation and range of motion. He will remain out of work until I see him back with his MRI results to determine the next step in his treatment. Orders: Orders MR knee LT wo con Today S83.512A - Sprain of anterior cruciate ligament of left knee, initial encounter Patient Instructions: Scribed for Ayse Bragg PA-C, by Manjeet Wong durable medical equipment technician, on 05/05/2024 at 8:30 AM EST. I, Ayse Bragg PA-C, have personally reviewed and agree with the information entered by the scribe. Coding Level of Care Code New Pt Level 3 (41603) Diagnoses Internal derangement of left knee M23.92
== END 2024-05-05 09:40 | disposition home or self-care (01) ==
PROVIDERS: Visit Provider Physician Assistant
DX: M23.92 Unspecified internal derangement of left knee (principal)
CPT/HCPCS: 99203

== ENCOUNTER → 2024-05-05 08:27 | Outpatient (BNVA) | payer MEDICAID, OTHER, SELFPAY | PROVIDERS: Visit Provider Physician Assistant | DX: M23.92 Unspecified internal derangement of left knee (principal); S83.512A Sprain of anterior cruciate ligament of left knee, initial encounter; X58.XXXA Exposure to other specified factors, initial encounter; Y93.66 Activity, soccer; Y92.9 Unspecified place or not applicable; Y99.9 Unspecified external cause status | CPT/HCPCS: 99212 ==

== ENCOUNTER 2024-05-11 14:59 | Outpatient (REF) | payer OTHER, SELFPAY ==
--- NOTE | ~2024-05-11 | MR_ITS ---
EXAMINATION: MR KNEE WITHOUT CONTRAST, LEFT CLINICAL INFORMATION: Sprain of the ACL. COMPARISON: Knee radiographs dated 05/03/2024. TECHNIQUE: MRI of the knee without contrast was performed using routine sequences on a high-field scanner. FINDINGS: MENISCI: Medial Meniscus: Intact. Lateral Meniscus: Intact. LIGAMENTS: Cruciate: ACL is completely torn at the femoral origin with surrounding edema signal. PCL is intact. Collateral: There is a grade 2 sprain of the MCL characterized by diffuse ligamentous thickening and increased intrasubstance signal, more pronounced proximally. The fibular collateral ligament is mildly edematous proximally without abnormal increased intrasubstance signal, consistent with grade 1 sprain. There is a Segond fracture at the insertion of the anterolateral ligament at the lateral tibial plateau. The posterolateral corner structures are intact at the insertion on the fibular styloid. Popliteus tendon is intact. EXTENSOR MECHANISM: Intact. ARTICULAR CARTILAGE/BONE: Patellofemoral Compartment: Normal. Medial Compartment: Osseous contusions are present at the medial margin of the medial femoral condyle and anteromedial margin of the medial tibial plateau. No fractures. Lateral Compartment: There is a mild articular cortical depression fracture at the anterior weightbearing surface of the lateral femoral condyle laterally over an area measuring 1.2 x 0.8 cm with subtle cortical depression and intense underlying subchondral edema. Distal femoral articular cartilage appears well preserved. There is mild focal cortical depression of the posterior margin of the lateral tibial plateau over an area measuring 1.6 x 0.5 cm with a chondral fissure along the posterior margin of the articular surface. No chondral defects. JOINT FLUID AND BURSAE: Large joint effusion. No Neal's cyst. There is significant edema signal in the soft tissues surrounding both the medial and lateral aspects of the joint. MR/MR knee LT wo con IMPRESSION: 1. Complete ACL tear. 2. Grade 2 sprain of the MCL. 3. Grade 1 sprain of the fibular collateral ligament. 4. Segond fracture at the insertion of the anterolateral ligament. 5. Mild articular cortical depression fractures at the lateral femoral condyle and lateral tibial plateau. 6. Osseous contusions at the medial femoral condyle and medial tibial plateau. 7. Large joint effusion.
== END 2024-05-11 15:00 | disposition home or self-care (01) ==
LOC: HO.MRI 14:59
PROVIDERS: PCP Internal Medicine; Visit Provider Physician Assistant
DX: S83.512A Sprain of anterior cruciate ligament of left knee, initial encounter (principal); M23.92 Unspecified internal derangement of left knee
CPT/HCPCS: 73721

== ENCOUNTER 2024-05-14 09:25 | Outpatient (AMB) | payer OTHER, SELFPAY ==
--- NOTE | 2024-05-14 09:27 | MHC.OFFVIS ---
Vital Signs 05/14/24 09:28 05/14/24 09:34 Height 5 ft 6 in 5 ft 6 in Weight 169 lb 169 lb BMI 27.3 27.3 Intake Visit Reasons: OV - MRI Review - Per TM Intake Note: Leonard is a 39 year old male who presents today for an MRI review of his left knee. On 04/28/24 he was playing soccer when his knee collided with another players knee.Patient reports that he is feeling a little bit better. Allergies No Known Allergies Allergy (Verified 05/05/24 08:48) HPI HPI OV - MRI Review - Per TM: Details: Leonard is a 39 year old male who presents today for an MRI review of his left knee. On 04/28/24 he was playing soccer when his knee collided with another players knee. It is unclear what exactly happened but he was unable to complete playing. He now feels that he is unable to return to nl activity. He works in the [employer] and is always on his feet. He is active but not particularly athletic. [facility] Medical History Hereditary spherocytosis Surgical History History of cholecystectomy H/O splenectomy Social History Patient Tobacco Use Status: Never used Tobacco Current occupational status: employed Physical Exam Vital Signs: BMI result Body Mass Index 27.3 Extrem Other: 0-125 deg motion discomfort with terminal flexion 2+ Devon's/ ant drawer Results Reviewed Results Reviewed: I personally reviewed the MR images. 1. Complete ACL tear. 2. Grade 2 sprain of the MCL. 3. Grade 1 sprain of the fibular collateral ligament. 4. Segond fracture at the insertion of the anterolateral ligament. 5. Mild articular cortical depression fractures at the lateral femoral condyle and lateral tibial plateau. 6. Osseous contusions at the medial femoral condyle and medial tibial plateau. 7. Large joint effusion. 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 He ruptured his ACL playing soccer and I reviewed the MRI findings with him. I recommend ACL reconstruction with allograft. I discussed the surgery with him and I discussed the risks benefits and alternatives including but not limited to the risk of pain, infection, stiffness, need for further surgery as well as potential medical complications such as blood clots, pulmonary embolism and cardiac complications. I explained the importance of post operative compliance and rehab and I recommend preoperative prehab . All his questions were answered and we will proceed forward accordingly. Orders: Orders PT Evaluation and Treatment 05/14/24 M23.92 - Unspecified internal derangement of left knee Coding Level of Care Code Est Pt Level 4 (38743) Diagnoses Acute rupture of anterior cruciate ligament of knee S83.519A
[2024-05-14 09:28] VITALS: BMI 27.3
[2024-05-14 09:34] VITALS: BMI 27.3
== END 2024-05-14 10:31 | disposition home or self-care (01) ==
PROVIDERS: PCP Internal Medicine; Visit Provider Orthopaedic Surgery
DX: S83.519A Sprain of anterior cruciate ligament of unspecified knee, initial encounter (principal); W51.XXXA Accidental striking against or bumped into by another person, initial encounter; Y93.66 Activity, soccer
CPT/HCPCS: 99214

== ENCOUNTER → 2024-05-14 09:25 | Outpatient (BNVA) | payer OTHER, SELFPAY | PROVIDERS: PCP Internal Medicine; Visit Provider Orthopaedic Surgery | DX: S83.519A Sprain of anterior cruciate ligament of unspecified knee, initial encounter (principal) | CPT/HCPCS: 99212 ==

== ENCOUNTER 2024-05-24 08:59 | Outpatient (AMB) | payer OTHER, SELFPAY ==
--- NOTE | 2024-05-24 09:01 | A.OFFPC_ITS ---
Vital Signs 05/24/24 09:03 Height 5 ft 6 in Weight 170 lb 0.8 oz BMI 27.4 BP 148/94 H Blood Pressure Location Lt brachial Position Sitting Pulse 54 Pulse Source Pulse Oximeter Pulse Oximetry (%) 98 Oxygen Delivery Method Room Air Intake Visit Reasons: new patient Plastic Battery Assembler Required: No Allergies No Known Allergies Allergy (Verified 05/24/24 09:14) Medication List - Last Reconciled 05/24/24 by Akilah Ladd PA-C No Known Home Meds Tobacco use date assessed: 05/24/24 Dental Screening Dental Screen Date: 05/24/24 Did you have a dental visit in the last 12 months?: Yes Did you have a dental problem in the last 6 months where you did not have access to dental care?: No Was dental information given to patient?: Patient has dentist HPI new patient HPI Details 39-year-old male with 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 In review of the notes, patient was seen by Orthopedics 05/19/2024 after sports injury found to have ruptured ACL.? Patient has been attending physical therapy and reconstruction surgery scheduled for 06/02/2024. Plastic Battery Assembler was used for the duration of this visit. Patient states he has not been much pain in regards to the torn ACL. He has no acute concerns today. [facility] Medical History Hereditary spherocytosis Surgical History History of cholecystectomy H/O splenectomy Family History (Updated 05/24/24 @ 09:16 by Akilah Ladd PA-C) Father Lung cancer Mother Pancreatic cancer Social History Patient Tobacco Use Status: Never used Tobacco Current occupational status: employed Cognitive needs: No Hearing needs: No Vision needs: No Questionnaire PHQ-9 Over the last 2 weeks, how often have you been bothered by any of the following problems? 1. Little interest or pleasure in doing things: not at all 2. Feeling down, depressed, or hopeless: not at all 3. Trouble falling or staying asleep, or sleeping too much: not at all 4. Feeling tired or having little energy: not at all 5. Poor appetite or overeating: not at all 6. Feeling bad about yourself - or that you are a failure or have let yourself or your family down: not at all 7. Trouble concentrating on things, such as reading the newspaper or watching television: not at all 8. Moving or speaking so slowly that other people could have noticed. Or the opposite - being so fidgety or restless that you have been moving around a lot more than usual: more than half the days 9. Thoughts that you would be better off or of hurting yourself in some way: not at all Total score: 2 Depression Screening Interpretation: Negative Depression Screening Done: Yes 79553 - PHQ-9 Billing: Yes Source: Developed by Drs. Onofre Schaefer, Leilani Casillas, Jovanny Lewis and colleagues, with an educational ave from [employer]. Thrive Questionnaire Date Thrive assessed: 05/24/24 I am a: Patient What is your living situation today?: I have a steady place to live Within the past 12 months, did the food you bought not last and you didn't have the money to get more?: I choose not to answer this question Within the past 12 months, did you worry whether your food would run out before you got money to buy more?: I choose not to answer this question Do you have trouble paying for medicines?: No Do you have trouble getting transportation to medical appointments?: No Do you have trouble paying your heating and electricity bill?: No Do you have trouble taking care of your child, family member or friend?: No Do you have trouble with day-to-day activities such as bathing, preparing meals, shopping, managing finances, etc.?: No Are you currently unemployed and looking for a job?: No Are you interested in more education?: No Please select the resources that you would like help with: Housing/Skilled Nursing Currently or been in a relationship where the following occur: I choose not to answer THRIVE Score: 0 AUDIT C Alcohol Use Questionnaire (AUDIT-C) 1. How often do you have a drink containing alcohol?: Never 2. How many drinks containing alcohol do you have on a typical day when you are drinking?: 1 or 2 3. How often do you have six or more drinks on one occasion?: Never Total Score: 0 RASHAAD-7 AMB Questionnaire RASHAAD-7 Date RASHAAD - 7 assessed: 05/24/24 Feeling nervous, anxious, or on edge: 0 = Not at all Not being able to stop or control worryin = Not at all Worrying too much about different things: 0 = Not at all Trouble relaxin = Not at all Being so restless that it is hard to sit still: 0 = Not at all Becoming easily annoyed or irritable: 0 = Not at all Feeling afraid as if something awful might happen: 0 = Not at all Total RASHAAD-7 score (0-4 normal; 5-9 mild; 10-14 moderate; 15-21 severe): 0 Source: Developed by Drs. Onofre Schaefer, Leilani Casillas, Jovanny Lewis and colleagues, with an educational ave from [employer]. RASHAAD-7 Assessment Billing RASHAAD-7 Assessment Tool: RASHAAD-7 Assessment 28903 Review of Systems Const Denies body aches, Denies fatigue, Denies fever(s), Denies frequent falls, Denies headache(s) and Denies weakness Eyes Reports no additional complaints and Denies change in vision ENT Denies dysphagia, Denies dizziness, Denies facial pain, Denies headache(s), Denies nasal congestion and Denies odynophagia Card Denies chest pain, Denies syncope, Denies irregular heart rhythm, Denies leg edema, Denies lightheadedness and Denies dyspnea Resp Denies cough and Denies dyspnea GI Denies constipation, Denies dysphagia, Denies dyspepsia, Denies diarrhea, Denies nausea, Denies odynophagia and Denies vomiting Denies dysuria, Denies urinary frequency, Denies urinary hesitancy and Denies urinary urgency Musc Details: Some mild pain with in left knee due to ACL tear Denies back pain and Denies myalgias Skin/Breast Reports system reviewed and no additional complaints, except as documented Neuro Denies dizziness, Denies syncope, Denies frequent falls, Denies headache(s) and Denies weakness Psych Reports no additional complaints Endo Denies fatigue Physical exam (Primary Care) Vital Signs: Last Vital Signs Pulse 54 05/24/24 09:03 BP 148/94 H 05/24/24 09:03 Pulse Ox 98 05/24/24 09:03 Oxygen Delivery Method Room Air 05/24/24 09:03 BMI result Body Mass Index 27.4 Tobacco/Smoking Status: Tobacco use Status Tobacco use date assessed 05/24/24 05/24/24 09:04 Patient Tobacco Use Status Never used Tobacco 05/24/24 09:03 PHQ-9: PHQ-9 Score PHQ-9: Total score 2 05/24/24 09:52 Depression Screening Interpretation: Negative Thrive Assessment: Date of Thrive Assessment Date Thrive assessed 05/24/24 05/24/24 09:04 Currently or been in a relationship where the following occur: I choose not to answer Const General: cooperative, healthy appearing, comfortable and no acute distress Orientation/consciousness: patient oriented x3 HENMT Head: Yes normocephalic Ears: hearing grossly normal bilaterally, external ears normal, TM's normal bilaterally and EAC's normal General nose exam: Normal external nose present Face and sinus: Yes normal facial exam and Yes sinuses nontender Mouth: Normal oral and palatal mucosa present and tongue normal Throat: Yes posterior oropharynx normal Eyes General: appearance normal, both eyes and all related structures Conjunctivae: conjunctivae normal Pupils: Equal, round and reactive pupils present EOM: EOMs intact bilaterally and No Nystagmus present Neck Neck: Yes normal visual inspection, Yes full ROM and Yes no lymphadenopathy Chest Chest palpation & inspection: normal inspection of the chest Resp Effort & Inspection: normal respiratory effort Auscultation: clear to auscultation bilaterally, no crackles, no rales, no rhonchi, no wheezes and breath sounds present Cardio Rate: regular rate Rhythm: regular rhythm Peripheral pulses: radial pulses present and dorsalis pedis present GI Inspection: Yes normal to inspection and No Abdominal wall edema Palpation (GI): Soft to palpation, not firm and nontender Auscultation: normal bowel sounds Rectal Exam - Male: Yes deferred General: Yes no CVA tenderness Back/Spine/Pelvis Back: no CVA tenderness Skin General skin exam: no rashes or lesions noted Neuro General: patient oriented x3 Cranial nerves: Yes Equal, round and reactive pupils present, Yes Midline tongue present, Yes Ability to bilaterally elevate shoulders present and No Nystagmus present Gait exam (Neuro): Normal gait present Extrem Other: Left lower extremity exam limited due to knee brace General: Yes normal to inspection, No no pedal edema and No edema Psych Speech and movement: Normal speech and movement present Affect: normal affect Insight: Good insight present (Psych) Judgement: Good judgement present (Psych) Assessment and Plan Assessment & Plan (1) Acute rupture of anterior cruciate ligament of knee: Code(s): S83.519A - Sprain of anterior cruciate ligament of unspecified knee, initial encounter Plan: Patient to continue following with Orthopedics scheduled for ACL repair May 2024. (2) Annual physical exam: Code(s): Z00.00 - Encounter for general adult medical examination without abnormal findings Plan: Patient is up-to-date on all current screenings and vaccinations for his age. Updated blood work ordered. Follow up in 1 year or sooner if new problems arise. Plan This note was constructed using voice recognition software. While every effort has been made to ensure accuracy and air defense specialist, still areas may have been included sometimes these areas may affect the content or meeting of the given symptoms. Total time spent caring for the patient today was 30 minutes. This includes time spent before the visit reviewing the chart, time spent during the visit, and time spent after the visit and documentation. Orders: Orders Complete Blood Count Auto Diff Today Z00.00 - Encounter for general adult medical examination without abnormal findings Comprehensive Met. Panel Today Z00.00 - Encounter for general adult medical examination without abnormal findings Coding Level of Care Code Est Pt Prev Care 18-39y(41292) Diagnoses Acute rupture of anterior cruciate ligament of knee S83.519A Annual physical exam Z00.00 Additional Codes RASHAAD-7 Assessment Billing - RASHAAD-7 Assessment Tool: RASHAAD-7 Assessment 88471 ([id number])
[2024-05-24 09:03] VITALS: BP 148/94; PULSE 54; O2SAT 98; BMI 27.4
== END 2024-05-24 09:38 | disposition home or self-care (01) ==
DX: Z00.00 Encounter for general adult medical examination without abnormal findings (principal); S83.519A Sprain of anterior cruciate ligament of unspecified knee, initial encounter
CPT/HCPCS: 99395

== ENCOUNTER 2024-05-27 13:54 | Outpatient (AMB) | payer OTHER, SELFPAY ==
--- NOTE | 2024-05-27 14:02 | MHC.OFFVIS ---
Intake Visit Reasons: Preop LT ACL recon 06/02/24 NE Intake Note: Leonard is a 39 year old male who presents today for a preop LT ACL recon 06/02/24. Allergies No Known Allergies Allergy (Verified 05/27/24 14:03) HPI HPI Preop LT ACL recon 06/02/24 NE: Details: Leonard is a 39 year old male who presents today for a preop LT ACL recon 06/02/24. He has been doing therapy and feels better than prior. He has some questions but for the most part is ready to undergo surgery. [facility] Medical History Hereditary spherocytosis Surgical History History of cholecystectomy H/O splenectomy Family History (Updated 05/24/24 @ 09:16 by Akilah Ladd PA-C) Father Lung cancer Mother Pancreatic cancer Social History Patient Tobacco Use Status: Never used Tobacco Current occupational status: employed Cognitive needs: No Hearing needs: No Vision needs: No Physical Exam Extrem Other: 0-1 35 deg motion no discomfort with terminal flexion 2+ Devon's/ ant drawer No effusion Results Reviewed Results Reviewed: I personally reviewed the MR images. 1. Complete ACL tear. 2. Grade 2 sprain of the MCL. 3. Grade 1 sprain of the fibular collateral ligament. 4. Segond fracture at the insertion of the anterolateral ligament. 5. Mild articular cortical depression fractures at the lateral femoral condyle and lateral tibial plateau. 6. Osseous contusions at the medial femoral condyle and medial tibial plateau. 7. Large joint effusion. Assessment & Plan Assessment & Plan (1) Acute rupture of anterior cruciate ligament of knee: Code(s): S83.519A - Sprain of anterior cruciate ligament of unspecified knee, initial encounter Category: Medical Plan: This is a 39-year-old gentleman who comes in today after tearing his ACL proximally 2 months ago. He is doing better after physical therapy and is surgery next week. I reviewed the procedure with him as well as the risks, benefits and alternatives. We elected to use a allograft and I think he expressed understanding and. I think he understands what the postoperative expectations are and all his questions were answered. Coding Level of Care Code Global (71405) Diagnoses Acute rupture of anterior cruciate ligament of knee S83.519A
== END 2024-05-27 14:37 | disposition home or self-care (01) ==
PROVIDERS: Visit Provider Orthopaedic Surgery
DX: S83.519A Sprain of anterior cruciate ligament of unspecified knee, initial encounter (principal)
CPT/HCPCS: 99024

== ENCOUNTER → 2024-05-27 13:54 | Outpatient (BNVA) | payer OTHER, SELFPAY | PROVIDERS: Visit Provider Orthopaedic Surgery | DX: Z01.818 Encounter for other preprocedural examination (principal); S83.512A Sprain of anterior cruciate ligament of left knee, initial encounter; X58.XXXA Exposure to other specified factors, initial encounter; Y93.9 Activity, unspecified; Y92.9 Unspecified place or not applicable; Y99.9 Unspecified external cause status | CPT/HCPCS: 99212 ==

== ENCOUNTER 2024-06-01 08:00 | Outpatient (RCR) | payer OTHER, SELFPAY ==
--- NOTE | 2024-05-18 11:15 | MHC.PT.EP ---
[facility] [place] Office [place] Office [place] Office [address] Kaylie Noel 140 [facility] [phone] F: [phone] F: [phone] F: [phone] F: [phone] Physical Therapy Plan of Care Date of Evaluation: 05/18/24 Date of Surgery: 06/02/24 Diagnosis: L ACL TEAR Assessment: Pt IS 39 YO M REFERRED TO PT FROM ORTHO (DR ARAMBULA) S/P L KNEE INJURY (PLAYING SOCCER) WITH MRI SHOWING MR/MR knee LT wo con IMPRESSION: 1. Complete ACL tear. 2. Grade 2 sprain of the MCL. 3. Grade 1 sprain of the fibular collateral ligament. 4. Segond fracture at the insertion of the anterolateral ligament. (Segond fracture is an avulsion fracture of the knee that involves the lateral aspect of the tibial plateau and is very frequently (~75% of cases) associated with disruption of the anterior cruciate ligament (ACL). On the frontal knee radiograph, it may be referred to as the lateral capsular sign. Contrary to the more common causes of an ACL tear, which typically involves valgus stress 3, a Segond fracture usually occurs as a result of internal rotation and varus stress 1,4. Typically these injuries are seen in two settings:falls sports: especially soccer, skiing, basketball and baseball 4,10 5. Mild articular cortical depression fractures at the lateral femoral condyle and lateral tibial plateau. 6. Osseous contusions at the medial femoral condyle and medial tibial plateau. 7. Large joint effusion. PRESENTS TO PT WITH DECREASED L KNEE ROM, DECREASED L KNEE STABILITY, PAIN. IS SCHEDULED FOR ACL RECONSTRUCTION ON JUN 02. WILL BENEFIT FROM PT TO HELP WITH ROM AND STRENGTH PRE-OPERATIVELY, THEN POSTOPERATIVELY Frequency and Duration: The patient will be seen 1X/WK X 2 WKS UNTIL SURGERY Short Term Goals: 1. I HEP FOR PRE-OP ACL 2. Pt WITH GOOD UNDERSTANDING OF POST OP PT INTERVENTION 3. Pt ABLE TO USE CRUTCHES FOR NWB L 4. Pt ABLE TO PERF STAIR NEGOTIATION WITH CRUTCHES/RAILING Supervisor Scouring Pads Goals: Treatment Plan: Modalities to reduce pain, spasms and effusion. Manual therapy to restore motion and function. Therapeutic exercise to improve strength and flexibility. Neuromuscular re-education for posture and balance. Therapeutic activities to return to functional activities of daily living. Electronically signed by: HINA BYERS PT Please sign and return to therapist. Thank you for your referral.
--- NOTE | 2024-06-01 10:11 | MHC.PT.DC ---
[facility] [place] Office [place] Office [place] Office [address] Kaylie Noel 140 [facility] [phone] F: [phone] F: [phone] F: [phone] F: [phone] Physical Therapy Discharge Report Diagnosis: L ACL TEAR Date of Surgery: 06/02/24 Date of Evaluation: 05/18/24 Date of Discharge: 06/01/24 Treatments to Date: 3 Cancellations to Date: No Shows to Date: Discharge Status: Achieved Goals Improved Function Independent with HEP Discharge Summary: Pt TO HAVE ACL RECONSTRUCTION (ALLOGRAFT) ON 06/02, FU WITH ORTHO 06/10, PT EVAL 06/10, USE OF SALES REPRESENTATIVE [employer] (SILVANA) TO ENSURE ALL QUESTIONS ANSWERED Electronically signed by: HINA BYERS PT Please sign and return to therapist. Thank you for your referral.
== END 2024-06-01 10:16 | disposition home or self-care (01) ==
LOC: HO.PT 08:00
PROVIDERS: PCP Internal Medicine; Visit Provider Orthopaedic Surgery
DX: M23.92 Unspecified internal derangement of left knee (principal)
CPT/HCPCS: 97110; 97161; 97530; 97535

== ENCOUNTER → 2024-06-02 07:22 | Day surgery (SDC) | payer OTHER, SELFPAY ==
[2024-05-31 08:03] VITALS: BMI 27.4
--- NOTE | 2024-05-31 13:50 | HO.ANESPROP2 ---
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 (Acute) Internal derangement of left knee (Acute) Past Medical History Medical History Hereditary spherocytosis Family History Family History (Updated 05/24/24 @ 09:16 by Akilah Ladd PA-C) Father Lung cancer Mother Pancreatic cancer Surgical History Surgical History History of cholecystectomy H/O splenectomy Social History Social History Patient Tobacco Use Status: Never used Tobacco Current occupational status: employed Cognitive needs: No Hearing needs: No Vision needs: No Meds Allergies Allergy/AdvReac Type Severity Reaction Status Date / Time No Known Allergies Allergy Verified 06/10/24 10:59 Exam Height,Weight and Vital Signs: Height 5 ft 6 in Weight 77.111 kg Pertinent Lab Results Pertinent Lab Results: Laboratory Tests 01/02/24 23:40 WBC 11.7 H Hgb 14.9 Hct 42.7 Plt Count 366 Sodium 141 Potassium 3.9 Chloride 109 H Carbon Dioxide 26 BUN 12 Creatinine 0.81 Assessment and Plan Assessment Anesthesia Assessment: Chart Reviewed
[2024-06-02] VITALS (10 sets, daily range): BP systolic 125–153; BP diastolic 79–91; PULSE 60–89; RESP 16–18; TEMP 36.4–36.9; O2SAT 96–100; BMI 27.8
[2024-06-02] MEDS: Lactated Ringers 1,000 ML 100 ML IVCONT (08:56)
--- NOTE | 2024-06-02 09:31 | MHC.SHP ---
Pre-Procedural Eval Section A - 24 Hr Update-Section A only Date of Service: 06/02/24 The patient is an INPATIENT: No Changes since office visit: No Cold of Flu in the past 2 weeks, No New Medical Problems, No Changes in Medication and No Patient answered all questions The patient has been examined within 24 hours of the surgical procedure. The History & Physical has been completed within 30 days and I have reviewed it.: Yes Section B - Complete if H&P > 30 days Chief Complaint: Sprain of anterior cruciate ligament of right knee Allergies: Allergies Allergy/AdvReac Type Severity Reaction Status Date / Time No Known Allergies Allergy Verified 06/02/24 08:15 Plan I have reviewed the history and physical and performed a pertinent physical examination on my patient. No changes have occurred unless specified. Time Spent With Patient Time: Total time managing care of this patient today ____ minutes.
--- NOTE | 2024-06-02 11:13 | P.BOP_ITS ---
Brief Operative Note Date of Service: 06/02/24 Pre-op diagnosis: left knee ACL tear Post-op diagnosis: same Procedure: Left ACL reconstruction with Allograft Implants: De Paz [employer] Nephew femoral button with 10x25 mm interference screw Surgeon: Juan Carlos Marino MD Anesthesia: GETA and regional Was an Fertilizer Supervisor used for this Procedure?: Yes Fertilizer Supervisor: Guillermina Thakkar Estimated blood loss (mL): 25 Tourniquet time (min): 55 IV fluids (mL): 1,000 Pathology: none sent Condition: stable Disposition: PACU
[2024-06-02] MEDS: fentaNYL citrate/PF 100 MCG/2 ML VIAL 50 MCG IVPUSH (12:25)
--- NOTE | 2024-06-04 09:36 | P.OP_ITS ---
Operative Note Operative Note Date of Service: 06/02/24 Narrative: Date of Service: 06/02/24 Pre-op diagnosis: left knee ACL tear Post-op diagnosis: same Procedure: Left ACL reconstruction with Allograft Implants: De Paz [employer] Nephew femoral button with 10x25 mm interference screw Surgeon: Juan Carlos Marino MD Anesthesia: GETA and regional Was an Senior Control Systems Engineer used for this Procedure?: Yes Senior Control Systems Engineer: Guillermina Thakkar Estimated blood loss (mL): 25 Tourniquet time (min): 55 IV fluids (mL): 1,000 Pathology: none sent Condition: stable Disposition: PACU Procedure in detail: Patient was brought to the operating room placed supine on the arthroscopic table and prepped and draped in standard sterile fashion. A time-out was called to identify proper site proper procedure proper surgeon and IV antibiotics per weight were administered. Under anesthesia she had a + pivot shift. I began by exsanguinating the limb and insufflating tourniquet to 300 mm Hg. Then made a standard anterolateral stab incision. The knee was insufflated with water and 30 degree arthroscope was placed. There was grade 0 fibrillations of the patella but overall suprapatellar pouch and the gutters were clean. I descended into the medial compartment where I made my far medial portal under direct visualization. The medial meniscus and medial compartment were pristine. The root was intact I examined the notch where there was a + empty wall sign and an intact PCL. The lateral compartment was examined and the lateral meniscus was intact and there were no cartilage changes oin the lateral compartment. I then returned to the notch. I debrided the ACL stump and acl footprint and performed a limited notchplasty. I then, through a far AM portal and a 7mm behind the back guide, drilled a k-wire through the LFC with the knee in hyper-flexion. I measured the tunnel as a 34 and then after sizing the allograft on the back table drilled a 25 mm tunnel with a 9.5mm reamer. The final 6 mm was drilled with a 4.5 reamer. I then pulled a suture through the femoral tunnel and turned my attention to the tibia. I did examine the femoral tunnel and was satisfied with the posterior wall and its location low and medial at the anatomic footprint. I placed my tibial drill guide in 55 deg and, through a anteromedial inc just lateral to the tibial tubercle placed a k-wire into the notch exiting just medial to the anterior horn insertion of the lateral meniscus. I then over- reamed with a 10 reamer. I cleaned the tunnels up with a shaver. On the back table I whip-stitched the allograft to fit through an 9.5 aperture and attached the femoral button to the looped end. I placed the graft on 15lbs of tension for 10 minutes. I then passed the allograft through the tibial tunnel and femoral tunnel and flipped the button. I cycled the knee about 10-15 cycles and then placed a [id number] tibial interference screw with the knee in hyper-extension while holding the graft taught. Once I was satisfied that the interference screw was buried I examined the ACL and the medial meniscus repair. The repair was stable and the ACL was not impinging and there was a negative pivot shift. I then removed all instrumentation and closed the incisions with nylon. Patient was then placed in sterile dressings and a hinged knee brace. She was then extubated brought recovery room stable condition. There were no known complications.
== END | disposition home or self-care (01) ==
PROVIDERS: PCP Internal Medicine; Visit Provider Orthopaedic Surgery
PROC: (CPT 27428; principal; 2024-06-02 09:30)
DX: S83.512A Sprain of anterior cruciate ligament of left knee, initial encounter (principal); M23.92 Unspecified internal derangement of left knee; D58.0 Hereditary spherocytosis; X58.XXXA Exposure to other specified factors, initial encounter; Y93.9 Activity, unspecified; Y92.9 Unspecified place or not applicable; Y99.8 Other external cause status
CPT/HCPCS: 29888; C1713; C1762; J0131; J0171; J0665; J0690; J1100; J2250; J2405; J2704; J3010

== ENCOUNTER → 2024-06-02 07:22 | Outpatient (BNV) | payer OTHER, SELFPAY | PROVIDERS: PCP Internal Medicine; Visit Provider Orthopaedic Surgery | DX: S83.512A Sprain of anterior cruciate ligament of left knee, initial encounter (principal) | CPT/HCPCS: 29888 ==

== ENCOUNTER 2024-06-10 10:19 | Outpatient (REF) | payer OTHER, SELFPAY ==
--- NOTE | ~2024-06-10 | XR_ITS ---
EXAMINATION: X-ray left knee CLINICAL INFORMATION: Pain COMPARISON: Prior x-ray 05/03/2024 TECHNIQUE: 3 views FINDINGS: Postsurgical changes from ACL reconstruction, with a screw in the proximal tibia. Lucency distal to the screw in the proximal tibia presumably postsurgical. Previously demonstrated avulsion fracture from the lateral aspect of the lateral tibial plateau is unchanged in position and alignment. Joint spaces are maintained. No new acute fractures identified. Small-moderate joint effusion. XR/XR knee LT 2V IMPRESSION: Postsurgical changes status post ACL reconstruction. Stable avulsion fracture fragment adjacent to the lateral tibial plateau. No new acute fracture seen. Small-moderate effusion. Electronically signed by: Aren Mcgarry MD 06/16/2024 10:47 AM EDT
== END 2024-06-10 10:20 | disposition home or self-care (01) ==
LOC: HO.HOSX 10:19
PROVIDERS: Visit Provider Physician Assistant
DX: M25.562 Pain in left knee (principal); S83.512D Sprain of anterior cruciate ligament of left knee, subsequent encounter; R60.9 Edema, unspecified; X58.XXXD Exposure to other specified factors, subsequent encounter; Z98.890 Other specified postprocedural states
CPT/HCPCS: 73560; 99212

== ENCOUNTER 2024-06-10 10:44 | Outpatient (AMB) | payer OTHER, SELFPAY ==
--- NOTE | 2024-06-10 10:50 | MHC.OFFVIS ---
Intake Visit Reasons: PO LT ACL recon 06/02/24 NE Intake Note: Leonard is a 39 year old male who presents today for a post op appointment s/p LT ACL recon 06/02/24 NE. Patient reports he is doing well, having some pain/swelling in his knee. He mentioned having a lot of swelling but went down when he used the ice machine. Patient notices when he is laying down he feels a pulling sensation behind his knee. Allergies No Known Allergies Allergy (Verified 06/10/24 10:59) HPI HPI PO LT ACL recon 06/02/24 NE: Details: 39-year-old male who presents in the office today 8 days status post left knee ACL reconstruction with allograft, which was performed on 06/02/[address] Marino. ? ? While in the office today, the patient reports he is doing well but is having a lot of pain when exercising. He claims when he is ambulating, he feels stretching behind the left knee that he does not feel is normal. He also states he has not been walking due to the pain but would like clearance to start ambulating for 10-15 minutes daily.?He also reports a significant amount of edema. He confirms the use of ice and states this has helped with edema.? ? The patient reports he has been taking the ACL brace off the sleep, using the restroom, and while exercising. ? ? Patient has his first physical therapy session scheduled for today, 06/10/24.? ? Patient is accompanied by an stock clerk provided by the hospital who helped translate for him today.? [facility] Medical History Hereditary spherocytosis Surgical History History of cholecystectomy H/O splenectomy Family History (Updated 05/24/24 @ 09:16 by Akilah Ladd PA-C) Father Lung cancer Mother Pancreatic cancer Social History Patient Tobacco Use Status: Never used Tobacco Current occupational status: employed Cognitive needs: No Hearing needs: No Vision needs: No Review of Systems Const All systems reviewed & are unremarkable except as noted in HPI and below Physical Exam Const General: cooperative and no acute distress Orientation/consciousness: patient oriented x3 Resp Effort & Inspection: normal respiratory effort and able to speak in complete sentences Cardio Peripheral pulses: Peripheral pulses 2+ throughout Skin General skin exam: no rashes or lesions noted Neuro General: patient oriented x3 Extrem Other: Left knee: Incision sites are clean, dry, and intact. Steri-stripes are intact. No surrounding erythema or drainage. No signs of infections. NVI. Assessment & Plan Assessment & Plan (1) Acute rupture of anterior cruciate ligament of knee: Code(s): S83.519A - Sprain of anterior cruciate ligament of unspecified knee, initial encounter Category: Medical Plan Mr. Zhang is a 39-year-old male who presents in the office today 8 days status post left knee ACL reconstruction with allograft, which was performed on 06/02/[address] Marino. ? ? While in the office today, the patient reports he is doing well but is having a lot of pain when exercising. He claims when he is ambulating, he feels stretching behind the left knee that he does not feel is normal. He also states he has not been walking due to the pain but would like clearance to start ambulating for 10-15 minutes daily.?He also reports a significant amount of edema. He confirms the use of ice and states this has helped with edema.? ? The patient reports he has been taking the ACL brace off the sleep, using the restroom, and while exercising. ? ? Patient has his first physical therapy session scheduled for today, 06/10/24.? ? Patient is accompanied by an stock clerk provided by the hospital who helped translate for him today.? ? Steri-stripes will remain in place, however, if they are still intact in one week the patient is able to remove them. The patient should continue to apply ice and elevate the left lower extremity as much as possible. We discussed the current edema is normal and will decrease with time and use of icing with elevation.?He was placed back into the ACL brace. He was educated that he will remain in the brace for at least 6 weeks postop and will be weaned out by physical therapy once quad control allows. He should remain in the brace while ambulating with the assistance of crutches and sleeping locked in extension. He was also educated that he should remain in the brace when sitting to use the bathroom and was instructed to keep a straight leg. He can shower and allow water to run over the incision site but should not submerge the left knee. Follow-up will be in four weeks with Dr. Marino, or sooner if needed. ? ? X-rays of the left knee which were obtained while in the office today and were reviewed by me, Guillermina Thakkar PA-C, revealed intact endo button with proper positioning. ? Orders: Orders XR knee LT 2V Today M25.569 - Pain in unspecified knee Patient Instructions: Scribed by Aneta Estes, medical service representative, for Guillermina Thakkar PA-C on 06/10/2024 at 11:56 am, EST.? Coding Level of Care Code Global (51352) Diagnoses Acute rupture of anterior cruciate ligament of knee S83.519A
== END 2024-06-10 11:16 | disposition home or self-care (01) ==
PROVIDERS: Visit Provider Physician Assistant
DX: S83.519A Sprain of anterior cruciate ligament of unspecified knee, initial encounter (principal)
CPT/HCPCS: 99024

== ENCOUNTER 2024-07-08 10:20 | Outpatient (AMB) | payer OTHER, SELFPAY ==
--- NOTE | 2024-07-08 10:22 | MHC.OFFVIS ---
Intake Visit Reasons: PO LT ACL recon 06/02/24 NE Intake Note: Leonard is a 39 year old male who presents today for a post op appointment s/p LT ACL recon 06/02/24 NE. Post operatively the patient has been non compliant with brace use - he has been taking the ACL brace off the sleep, using the restroom, and while exercising. Educated on proper brace use at his 1st post operative appointment . Temporary Help Agency Referral Clerk Required: Yes Temporary Help Agency Referral Clerk Name: Karrie [id number] Allergies No Known Allergies Allergy (Verified 06/10/24 10:59) HPI HPI PO LT ACL recon 06/02/24 NE: Details: Leonard is a 39 year old male who presents today for a post op appointment s/p LT ACL recon 06/02/24 NE. Post operatively the patient has been non compliant with brace use - he has been taking the ACL brace off the sleep, using the restroom, and while exercising. Educated on proper brace use at his 1st post operative appointment he states he is doing well with motion and walking but has pain at night that is not letting him sleep. He denies numbness and tingling. He states the pain is mostly anterior knee. [facility] Medical History Hereditary spherocytosis Surgical History History of cholecystectomy H/O splenectomy Family History (Updated 05/24/24 @ 09:16 by Akilah Ladd PA-C) Father Lung cancer Mother Pancreatic cancer Social History Patient Tobacco Use Status: Never used Tobacco Current occupational status: employed Cognitive needs: No Hearing needs: No Vision needs: No Physical Exam Extrem Other: On exam he has full range of motion with trace effusion and mild swelling over the portals with well-healed incisions and no evidence of erythema or infection. He has a stable Devon's with a negative anterior drawer. I can reproduce his pain. He is walking normally. Assessment & Plan Assessment & Plan (1) S/P ACL reconstruction: Code(s): Z98.890 - Other specified postprocedural states Category: Surgical Plan: Six weeks status post left ACL reconstruction. Objectively speaking is doing well but he is having pain at night. He is not sleeping more than 4 hours. He is taking ibuprofen. I have given him a ice compression device which I recommend he use. I showed him how. He will see me back in 6 weeks. Continue physical therapy. Coding Level of Care Code Global (22010) Diagnoses S/P ACL reconstruction Z98.890
== END 2024-07-08 11:48 | disposition home or self-care (01) ==
PROVIDERS: Visit Provider Orthopaedic Surgery
DX: Z98.890 Other specified postprocedural states (principal)
CPT/HCPCS: 99024

== ENCOUNTER → 2024-07-08 10:20 | Outpatient (BNVA) | payer OTHER, SELFPAY | PROVIDERS: Visit Provider Orthopaedic Surgery | DX: M25.562 Pain in left knee (principal); Z47.89 Encounter for other orthopedic aftercare; Z98.890 Other specified postprocedural states | CPT/HCPCS: 99212 ==

== ENCOUNTER 2024-07-22 12:56 | Outpatient (AMB) | payer OTHER, SELFPAY ==
--- NOTE | 2024-07-22 13:10 | A.OFFVIS_ITS ---
Intake Visit Reasons: PO LT ACL recon 06/02/24 NE-Wound check Intake Note: Leonard is a 39 year old male who presents to the office today for a PO LT ACL recon 06/02/24 NE. He states that his knee is doing well, however he mentions when he is walking for long distances he tends to have discomfort in his knee. Patient reports about a week ago he felt a burning sensation in his foot and it moves up to the heel. Allergies No Known Allergies Allergy (Verified 07/22/24 13:28) HPI HPI PO LT ACL recon 06/02/24 NE-Wound check: Details: 39-year-old male who presents in the office today 7 weeks status post left knee ACL reconstruction with allograft, which was performed on 06/02/[address] Marino. I last saw the patient in the office on 06/10/24 when he was placed back into an ACL brace and recommended to remain in the brace for a minimum of 6 weeks post-op. He was encouraged to apply ice and elevate the left lower extremity. He was seen by Dr. Marino on 07/08/24 when he was supplied and advised to use an ice compression device. He was encouraged to continue physical therapy. While in the office today, the patient reports discomfort in his left knee when he walks for long distances. The patient mentions he is experiencing a burning sensation in the ball of his left foot that radiates up to the heel which is prevalent when walking and when he is sedentary. He admits having an abnormal gait because of the burning sensation. He also reports experiencing a mild pulled muscle sensation on the top aspect of his foot. He denies any pain. [facility] Medical History Hereditary spherocytosis Surgical History History of cholecystectomy H/O splenectomy Family History (Updated 05/24/24 @ 09:16 by Akilah Ladd PA-C) Father Lung cancer Mother Pancreatic cancer Social History Patient Tobacco Use Status: Never used Tobacco Current occupational status: employed Cognitive needs: No Hearing needs: No Vision needs: No Review of Systems Const All systems reviewed & are unremarkable except as noted in HPI and below Physical Exam Const General: cooperative, healthy appearing and no acute distress Orientation/consciousness: patient oriented x3 Resp Effort & Inspection: normal respiratory effort and able to speak in complete sentences Cardio Rate: regular rate Peripheral pulses: Peripheral pulses 2+ throughout GI Palpation (GI): Soft to palpation Skin General skin exam: no rashes or lesions noted Lesions: no lesions Rashes: no rashes Neuro General: patient oriented x3 Extrem Other: Left knee full ROM. Prior incision sites are well healed and approximated. Normal left foot and ankle exam. No tenderness to palpation over all anatomical landmarks. Sensation intact. NVI. Assessment & Plan Assessment & Plan (1) S/P ACL reconstruction: Code(s): Z98.890 - Other specified postprocedural states Category: Surgical (2) Plantar fasciitis of left foot: Code(s): M72.2 - Plantar fascial fibromatosis Category: Medical Plan Mr. Zhang is a 39-year-old male who presents in the office today 7 weeks status post left knee ACL reconstruction with allograft, which was performed on 06/02/[address] Marino. I last saw the patient in the office on 06/10/24 when he was placed back into an ACL brace and recommended to remain in the brace for a minimum of 6 weeks post-op. He was encouraged to apply ice and elevate the left lower extremity. He was seen by Dr. Marino on 07/08/24 when he was supplied and advised to use an ice compression device. He was encouraged to continue physical therapy. While in the office today, the patient reports discomfort in his left knee when he walks for long distances. The patient mentions he is experiencing a burning sensation in the ball of his left foot that radiates up to the heel which is prevalent when walking and when he is sedentary. He admits having an abnormal gait because of the burning sensation. He also reports experiencing a mild pulled muscle sensation on the top aspect of his left foot. He denies any pain. The patient is recommended to freeze a filled water bottle in a freezer and roll it on the ground under his foot for massage and anti-inflammatory effects. I placed an order for physical therapy to work on strengthening for the ACL post reconstruction and also for plantar fasciitis. Follow-up will be at his normally scheduled follow-up appointment Dr. Marino, or sooner if needed. Orders: Orders PT Evaluation and Treatment Today M72.2 - Plantar fascial fibromatosis, Z98.890 - Other specified postprocedural states Patient Instructions: Scribed by Alicia Du pesticide use medical coordinator, for Guillermina Thakkar PA-C on 07/22/24 at 01:21 pm EST. Coding Level of Care Code Global (74248) Diagnoses S/P ACL reconstruction Z98.890 Plantar fasciitis of left foot M72.2
== END 2024-07-22 14:29 | disposition home or self-care (01) ==
PROVIDERS: Visit Provider Physician Assistant
DX: Z98.890 Other specified postprocedural states (principal); M72.2 Plantar fascial fibromatosis
CPT/HCPCS: 99024

== ENCOUNTER → 2024-07-22 12:56 | Outpatient (BNVA) | payer OTHER, SELFPAY | PROVIDERS: Visit Provider Physician Assistant | DX: M72.2 Plantar fascial fibromatosis (principal); Z98.890 Other specified postprocedural states | CPT/HCPCS: 99212 ==

== ENCOUNTER 2024-08-16 10:56 | Outpatient (AMB) | payer OTHER, SELFPAY ==
--- NOTE | 2024-08-16 11:00 | MHC.OFFVIS ---
Intake Visit Reasons: PO LT ACL recon 06/02/24 NE Intake Note: Leonard is a 39 year old male who presents today for a post op appointment s/p LT ACL recon 06/02/24 NE. Machine Feeder Floorperson Required: Yes Machine Feeder Floorperson Language: Nepali Machine Feeder Floorperson Services: Machine Feeder Floorperson Present Allergies No Known Allergies Allergy (Verified 07/22/24 13:28) HPI HPI PO LT ACL recon 06/02/24 NE: Details: Leonard is a 39 year old male who presents today for a post op appointment s/p LT ACL recon 06/02/24 NE. He has started to be able to sleep without pain and is doing well. He states he has some tightness with terminal flexion [facility] Medical History Hereditary spherocytosis Surgical History History of cholecystectomy H/O splenectomy Family History (Updated 05/24/24 @ 09:16 by Akilah Ladd PA-C) Father Lung cancer Mother Pancreatic cancer Social History Patient Tobacco Use Status: Never used Tobacco Current occupational status: employed Cognitive needs: No Hearing needs: No Vision needs: No Physical Exam Extrem Other: Portals clean dry and intact. 0-130 degrees of motion. Stable Devon's with a negative pivot shift Assessment & Plan Assessment & Plan (1) S/P ACL reconstruction: Code(s): Z98.890 - Other specified postprocedural states Category: Surgical Plan: Doing well status post ACL reconstruction. Continue home exercise program. Reviewed motions that may be dangerous for him. He will abstain from returning to work in the [employer] and we will see me for follow up in 6 weeks. Coding Level of Care Code Global (70436) Diagnoses S/P ACL reconstruction Z98.890
== END 2024-08-16 11:42 | disposition home or self-care (01) ==
LOC: HO.HOS 10:57
PROVIDERS: Visit Provider Orthopaedic Surgery
DX: Z98.890 Other specified postprocedural states (principal)
CPT/HCPCS: 99024

== ENCOUNTER → 2024-08-16 10:56 | Outpatient (BNVA) | payer OTHER, SELFPAY | PROVIDERS: Visit Provider Orthopaedic Surgery | DX: Z47.89 Encounter for other orthopedic aftercare (principal); Z98.890 Other specified postprocedural states | CPT/HCPCS: 99212 ==

== ENCOUNTER 2024-08-20 08:00 | Outpatient (RCR) | payer OTHER, SELFPAY ==
--- NOTE | 2024-06-10 15:30 | MHC.PT.EP ---
[facility] [place] Office [place] Office [place] Office [address] Kaylie Noel [address] [facility] [phone] F: [phone] F: [phone] F: [phone] F: [phone] Physical Therapy Plan of Care Date of Evaluation: 06/10/24 Date of Surgery: 06/02/24 Diagnosis: s/p ACL allograft Assessment: Leonard is a 39 year old male who is referred to PT for s/p ACL reconstruction allograft . He is 8 days post op. On PT examination he presented with 3-6/10 pain in the posterior aspect of knee when stretching, with standing and walking, TTP over distal quad, decreased L Knee ROM, decreased L LE strength, altered gait balance and posture. He lives with his family and is needed assistance with ADLS due to post op restrictions. He works for [employer] but has been out of work since the injury. He enjoys playing soccer. He would benefit from skilled PT to address the aforementioned impairments and improve tolerance to functional activities. Frequency and Duration: The patient will be seen 2/week for 12 weeks Short Term Goals: 1. Pt will have 50% decrease in pain which will enable him to walk with brace and crutches without pain in 2 weeks. 2. Pt will be able to walk without AD but with the brace in a unlocked position without difficulty in 4 weeks 3. Pt will be able to move knee through full plane of motion without pain which will enable him to perform sit to stand and negotiate stairs without compensation in 6 weeks. Retail Merchandising Specialist Goals: 1. Pt will demonstrate an increase in muscle strength by 1 grade which will enable him to perform all ADLS like dressing showering, cleaning and cooking without limitation sin 8 weeks. 2. Pt will return to all work activities without pain in 10 weeks 3. Pt will demonstrate good knee proprioception and agility and return to PLOF in 12 weeks. Treatment Plan: Modalities to reduce pain, spasms and effusion. Manual therapy to restore motion and function. Therapeutic exercise to improve strength and flexibility. Neuromuscular re-education for posture and balance. Therapeutic activities to return to functional activities of daily living. Electronically signed by: Marlen Sutton PT DPT Please sign and return to therapist. Thank you for your referral.
--- NOTE | 2024-09-03 15:35 | MHC.PT.DC ---
[facility] [place] Office [place] Office [place] Office [address] Kaylie Noel [address] [phone] F: [phone] F: [phone] F: [phone] F: [phone] Physical Therapy Discharge Report Diagnosis: s/p ACL allograft Date of Surgery: 06/02/24 Date of Evaluation: 06/10/24 Date of Discharge: 09/03/24 Treatments to Date: 20 Cancellations to Date: 0 No Shows to Date: 0 Discharge Status: Achieved Goals Improved Function Independent with HEP Discharge Summary: Leonard has completed 20 PT visits and has achieved all goals set for him. He is independent with all HEP and has returned to PLOF. He is therefore being d/c from PT today. Leonard was in agreement with the plan. I reviewed all HEP with him and challenged him with plyo drills as well. Electronically signed by: Marlen Sutton, PT DPT Please sign and return to therapist. Thank you for your referral.
== END 2024-09-03 15:35 | disposition home or self-care (01) ==
LOC: HO.PT 08:00
PROVIDERS: Visit Provider Orthopaedic Surgery
DX: Z98.890 Other specified postprocedural states (principal); M23.92 Unspecified internal derangement of left knee
CPT/HCPCS: 97110; 97112; 97140; 97161; 97530

== ENCOUNTER 2024-09-27 12:29 | Outpatient (AMB) | payer OTHER, SELFPAY ==
--- NOTE | 2024-09-27 12:33 | MHC.OFFVIS ---
Intake Visit Reasons: PO LT ACL recon 06/02/24 NE Intake Note: Leonard is a 39 year old male who presents today for a post op appointment s/p LT ACL recon 06/02/24 NE. Patient reports that he is doing very well with no concerns at this time. He has some aching with the cold but he wraps the knee and this helps Tractor Engine Assembler Required: Yes Tractor Engine Assembler Name: Javon [id number] Allergies No Known Allergies Allergy (Verified 09/27/24 12:33) HPI HPI PO LT ACL recon 06/02/24 NE: Details: Leonard is a 39 year old male who presents today for a post op appointment s/p LT ACL recon 06/02/24 NE. Patient reports that he is doing very well with no concerns at this time. He has some aching with the cold but he wraps the knee and this helps. He has been riding a stationary bicycle at home. [facility] Medical History Hereditary spherocytosis Surgical History History of cholecystectomy H/O splenectomy Family History (Updated 05/24/24 @ 09:16 by Akilah Ladd PA-C) Father Lung cancer Mother Pancreatic cancer Social History Patient Tobacco Use Status: Never used Tobacco Current occupational status: employed Cognitive needs: No Hearing needs: No Vision needs: No Physical Exam Extrem Other: 1+ anterior drawer with negative pivot shift. Good strong left quadricep muscle with full range of motion and normal gait. Assessment & Plan Assessment & Plan (1) S/P ACL reconstruction: Code(s): Z98.890 - Other specified postprocedural states Category: Surgical Plan: Status post ACL reconstruction doing well. No pain no issues. Care with twisting and rotating activities. Continue stationary bike and home exercise program. I recommend that he follow up in 2 months for eval and start of dynamic rehab program. Coding Level of Care Code Est Pt Level 3 (77648) Diagnoses S/P ACL reconstruction Z98.890
== END 2024-09-27 13:00 | disposition home or self-care (01) ==
PROVIDERS: Visit Provider Orthopaedic Surgery
DX: S83.512D Sprain of anterior cruciate ligament of left knee, subsequent encounter (principal)
CPT/HCPCS: 99212

== ENCOUNTER → 2024-09-27 12:29 | Outpatient (BNVA) | payer OTHER, SELFPAY | PROVIDERS: Visit Provider Orthopaedic Surgery | DX: Z47.89 Encounter for other orthopedic aftercare (principal); Z98.890 Other specified postprocedural states | CPT/HCPCS: 99212 ==

== ENCOUNTER 2024-12-13 11:02 | Outpatient (AMB) | payer OTHER, SELFPAY ==
--- NOTE | 2024-12-13 11:05 | MHC.OFFVIS ---
Intake Visit Reasons: OV - LT ACL recon 06/02/24- follow up Intake Note: Leonard is a 39 year old male who presents today for a post op appointment s/p LT ACL recon 06/02/24 NE. Today we will be evaluating for a Dynamic Rehab Program Batting Machine Operator Insulation Required: Yes Batting Machine Operator Insulation Language: Azeri Allergies No Known Allergies Allergy (Verified 12/13/24 11:05) HPI HPI OV - LT ACL recon 06/02/24- follow up: Details: Six months postop doing well. No complaints. [facility] Medical History Hereditary spherocytosis Surgical History History of cholecystectomy H/O splenectomy Family History (Updated 05/24/24 @ 09:16 by Akilah Ladd PA-C) Father Lung cancer Mother Pancreatic cancer Social History Patient Tobacco Use Status: Never used Tobacco Current occupational status: employed Cognitive needs: No Hearing needs: No Vision needs: No Physical Exam Extrem Other: Full range of motion. Stable Devon's. No effusion. Assessment & Plan Assessment & Plan (1) S/P ACL reconstruction: Code(s): Z98.890 - Other specified postprocedural states Category: Surgical Plan: Six months postop doing well. May commence dynamic exercises with PT. Order written. Orders: Orders PT Evaluation and Treatment Today Z98.890 - Other specified postprocedural states Coding Level of Care Code Est Pt Level 3 (12975) Diagnoses S/P ACL reconstruction Z98.890
== END 2024-12-13 11:11 | disposition home or self-care (01) ==
PROVIDERS: Visit Provider Orthopaedic Surgery
DX: S83.512D Sprain of anterior cruciate ligament of left knee, subsequent encounter (principal)
CPT/HCPCS: 99213

== ENCOUNTER → 2024-12-13 11:02 | Outpatient (BNVA) | payer OTHER, SELFPAY | PROVIDERS: Visit Provider Orthopaedic Surgery | DX: Z98.890 Other specified postprocedural states (principal) | CPT/HCPCS: 99212 ==

== ENCOUNTER 2025-05-26 11:28 | Outpatient (REF) | payer OTHER, SELFPAY ==
[2025-05-26 12:49] LABS: MANUAL DIFF FLAG NO
[2025-05-26 13:10] LABS: Hematocrit 47.6 % (42.0-52.0); Hemoglobin 16.8 g/dl (14.0-18.0); Imm Gran Abs Auto 0.06 X10*3/uL (0.00-0.03); Imm Gran Pct Auto 0.6 % (0.0-0.4); Lymphocytes Absolute Auto 3.5 X10*3/uL (1.2-4.9); Mean Corpuscular HGB Conc 35.3 g/dl (31.0-36.0); Mean Corpuscular Hemoglobin 28.6 pg (27.0-33.0); Mean Corpuscular Volume 81.1 fL (80.0-98.0); NRBC Abs Auto 0.000 X10*3/uL (0.0-0.012); NRBC Pct Auto 0.0 /100WBC (0.0-0.2); Platelet Count 390 X10*3/uL (160-400); Red Blood Count 5.87 X10*6/uL (4.60-5.80); White Blood Count 9.3 X10*3/uL (4.8-10.8)
[2025-05-26 14:04] LABS: Alanine Aminotransferase 75 U/L (0-40); Albumin Level 4.5 g/dL (3.5-5.0); Alkaline Phosphatase 60 U/L (39-117); Anion Gap 11 (12-20); Aspartate Amino Transferase 39 U/L (5-37); Blood Urea Nitrogen 13 mg/dL (9-16); Calcium 9.0 mg/dL (8.4-10.2); Carbon Dioxide 26 mmol/L (22-29); Chloride 108 mmol/L (96-108); Cholesterol 186 mg/dL (<200); Estimated Glomerular Filt Rate > 60; HDL Cholesterol 43 mg/dL (>40); Potassium 4.3 mmol/L (3.3-5.1); Sodium 141 mmol/L (135-145); Total Protein 7.4 g/dL (6.5-8.0); Triglycerides 92 mg/dL (<150)
[2025-05-26 14:53] LABS: Folate 12.3 ng/mL (> or = 4.0); Vitamin B12 285 pg/mL (200-900)
[2025-05-27 03:49] LABS: HBS Num1 0.01 mIU/mL (0-7.99); HBc Num1 0.06 S/CO (0.00-0.79); HBsAGNum1 0.48 S/CO (0.00-0.99); Hepatitis B Surface Antigen Negative (Negative); ~HepC Num1 0.18 S/CO (0.00-0.79); ~Hepatitis B Surface Antibody NONREACTIVE (Nonreactive); ~Hepatitis C Antibody Nonreactive (Nonreactive)
== END 2025-05-26 11:29 | disposition home or self-care (01) ==
LOC: HO.LAB 11:28
DX: Z00.01 Encounter for general adult medical examination with abnormal findings (principal); Z13.0 Encounter for screening for diseases of the blood and blood-forming organs and certain disorders involving the immune mechanism; Z13.220 Encounter for screening for lipoid disorders; Z13.29 Encounter for screening for other suspected endocrine disorder; R79.89 Other specified abnormal findings of blood chemistry; E03.0 Congenital hypothyroidism with diffuse goiter; R03.0 Elevated blood-pressure reading, without diagnosis of hypertension; Z98.890 Other specified postprocedural states
CPT/HCPCS: 36415; 80053; 80061; 82306; 82607; 82746; 84443; 85025; 86704; 86706; 86803; 87340; 96127; 99385

== ENCOUNTER 2025-05-26 11:28 | Outpatient (AMB) | payer OTHER, SELFPAY ==
--- NOTE | 2025-05-26 11:36 | A.OFFPC_ITS ---
Vital Signs 05/26/25 11:37 05/26/25 12:02 Height 5 ft 6 in Weight 176 lb 4 oz BMI 28.4 BP 144/60 H 138/92 H Blood Pressure Location Lt brachial Lt brachial Position Sitting Sitting Pulse 76 Pulse Source Pulse Oximeter Pulse Oximetry (%) 98 Oxygen Delivery Method Room Air Intake Visit Reasons: PE PHQ-9 needed. Turn Machine Operator Required: No Accompanied by: Son Allergies No Known Allergies Allergy (Verified 05/26/25 11:53) Medication List - Last Reconciled 05/26/25 by Akilah Ladd PA-C ibuprofen 800 mg PO TID PRN oxycodone-acetaminophen 5-325 mg 1 tab PO Q4-6H PRN 7 days Tobacco use date assessed: 05/26/25 Dental Screening Dental Screen Date: 05/26/25 Did you have a dental visit in the last 12 months?: No Did you have a dental problem in the last 6 months where you did not have access to dental care?: No Was dental information given to patient?: No HPI PE PHQ-9 needed. HPI Details 40-year-old male with no relevant past m edical history last seen 05/2024 coming to the office for annual exam. In review of the notes, patient has been following with [facility] orthopedics last seen 01/04 s/p ACL reconstruction 06/02/2024 recommended physical therapy. Presenting with an annual wellness exam. The patient has a history of elevated blood pressure readings, with the current measurement at 138/92 mmHg. Previous readings have also been high, and there is a family history of hypertension. The patient experiences headaches approximately once a week, typically located at the back of the head. These headaches are relieved by medication. No triggers noted for these headaches and no splee disturbances noted. [facility] Medical History Hereditary spherocytosis Surgical History History of cholecystectomy H/O splenectomy Family History Father Lung cancer Mother Pancreatic cancer Social History Patient Tobacco Use Status: Never used Tobacco Current occupational status: employed Cognitive needs: No Hearing needs: No Vision needs: No Questionnaire PHQ-9 Over the last 2 weeks, how often have you been bothered by any of the following problems? 1. Little interest or pleasure in doing things: not at all 2. Feeling down, depressed, or hopeless: not at all 3. Trouble falling or staying asleep, or sleeping too much: not at all 4. Feeling tired or having little energy: not at all 5. Poor appetite or overeating: not at all 6. Feeling bad about yourself - or that you are a failure or have let yourself or your family down: not at all 7. Trouble concentrating on things, such as reading the newspaper or watching television: not at all 8. Moving or speaking so slowly that other people could have noticed. Or the opposite - being so fidgety or restless that you have been moving around a lot more than usual: not at all 9. Thoughts that you would be better off or of hurting yourself in some way: not at all Total score: 0 Depression Screening Interpretation: Negative Depression Screening Done: Yes 29290 - PHQ-9 Billing: Yes Source: Developed by Drs. Onofre Schaefer, Leilani Casillas, Jovanny Lewis and colleagues, with an educational ave from [employer]. Thrive Questionnaire Date Thrive assessed: 05/26/25 I am a: Patient What is your living situation today?: I have a steady place to live Within the past 12 months, did the food you bought not last and you didn't have the money to get more?: I choose not to answer this question Within the past 12 months, did you worry whether your food would run out before you got money to buy more?: I choose not to answer this question Do you have trouble paying for medicines?: I choose not to answer this question Do you have trouble getting transportation to medical appointments?: I choose not to answer this question Do you have trouble paying your heating and electricity bill?: I choose not to answer this question Do you have trouble taking care of your child, family member or friend?: I choose not to answer this question Do you have trouble with day-to-day activities such as bathing, preparing meals, shopping, managing finances, etc.?: I choose not to answer this question Are you currently unemployed and looking for a job?: I choose not to answer this question Are you interested in more education?: I choose not to answer this question Please select the resources that you would like help with: Housing/Custodial Currently or been in a relationship where the following occur: I choose not to answer THRIVE Score: 0 AUDIT C Alcohol Use Questionnaire (AUDIT-C) 1. How often do you have a drink containing alcohol?: Never Total Score: 0 RASHAAD-7 AMB Questionnaire RASHAAD-7 Date RASHAAD - 7 assessed: 05/26/25 Feeling nervous, anxious, or on edge: 0 = Not at all Not being able to stop or control worryin = Not at all Worrying too much about different things: 0 = Not at all Trouble relaxin = Not at all Being so restless that it is hard to sit still: 0 = Not at all Becoming easily annoyed or irritable: 0 = Not at all Feeling afraid as if something awful might happen: 0 = Not at all Total RASHAAD-7 score (0-4 normal; 5-9 mild; 10-14 moderate; 15-21 severe): 0 Source: Developed by Drs. Onofre Schaefer, Leilani Casillas, Jovanny Lewis and colleagues, with an educational ave from [employer]. RASHAAD-7 Assessment Billing RASHAAD-7 Assessment Tool: RASHAAD-7 Assessment 86749 Review of Systems Const Denies body aches, Denies fatigue, Denies fever(s), Denies frequent falls, Reports headache(s) (once per week ) and Denies weakness Eyes Reports no additional complaints and Denies change in vision ENT Denies dysphagia, Denies dizziness, Denies facial pain, Reports headache(s) (once per week ), Denies nasal congestion and Denies odynophagia Card Denies chest pain, Denies syncope, Denies irregular heart rhythm, Denies leg edema, Denies lightheadedness and Denies dyspnea Resp Denies cough and Denies dyspnea GI Denies constipation, Denies dysphagia, Denies dyspepsia, Denies diarrhea, Denies nausea, Denies odynophagia and Denies vomiting Denies dysuria, Denies urinary frequency, Denies urinary hesitancy and Denies urinary urgency Musc Denies back pain and Denies myalgias Skin/Breast Reports system reviewed and no additional complaints, except as documented Neuro Denies dizziness, Denies syncope, Denies frequent falls, Reports headache(s) (once per week ) and Denies weakness Psych Reports no additional complaints Endo Denies fatigue Physical exam (Primary Care) Vital Signs: Last Vital Signs Pulse 76 05/26/25 11:37 BP 138/92 H 05/26/25 12:02 Pulse Ox 98 05/26/25 11:37 Oxygen Delivery Method Room Air 05/26/25 11:37 BMI result Body Mass Index 28.4 Tobacco/Smoking Status: Tobacco use Status Tobacco use date assessed 05/26/25 05/26/25 11:38 Patient Tobacco Use Status Never used Tobacco 05/26/25 11:38 PHQ-9: PHQ-9 Score PHQ-9: Total score 0 05/26/25 11:56 Depression Screening Interpretation: Negative Thrive Assessment: Date of Thrive Assessment Date Thrive assessed 05/26/25 05/26/25 11:38 Currently or been in a relationship where the following occur: I choose not to answer Const General: cooperative, healthy appearing, comfortable and no acute distress Orientation/consciousness: patient oriented x3 HENMT Head: Yes normocephalic Ears: hearing grossly normal bilaterally, external ears normal, TM's normal bilaterally and EAC's normal General nose exam: Normal external nose present Face and sinus: Yes normal facial exam and Yes sinuses nontender Mouth: Normal oral and palatal mucosa present and tongue normal Throat: Yes posterior oropharynx normal Eyes General: appearance normal, both eyes and all related structures Conjunctivae: conjunctivae normal Pupils: Equal, round and reactive pupils present EOM: EOMs intact bilaterally and No Nystagmus present Neck Neck: Yes normal visual inspection, Yes full ROM and Yes no lymphadenopathy Chest Chest palpation & inspection: normal inspection of the chest Resp Effort & Inspection: normal respiratory effort Auscultation: clear to auscultation bilaterally, no crackles, no rales, no rhonchi, no wheezes and breath sounds present Cardio Rate: regular rate Rhythm: regular rhythm Peripheral pulses: radial pulses present and dorsalis pedis present GI Inspection: Yes normal to inspection and No Abdominal wall edema Palpation (GI): Soft to palpation, not firm and nontender Auscultation: normal bowel sounds Rectal Exam - Male: Yes deferred General: Yes no CVA tenderness Back/Spine/Pelvis Back: no CVA tenderness Skin General skin exam: no rashes or lesions noted Neuro General: patient oriented x3 Cranial nerves: Yes Equal, round and reactive pupils present, Yes Midline tongue present, Yes Ability to bilaterally elevate shoulders present and No Nystagmus present Gait exam (Neuro): Normal gait present Extrem General: Yes normal to inspection, Yes full ROM, No no pedal edema and No edema Psych Speech and movement: Normal speech and movement present Affect: normal affect Insight: Good insight present (Psych) Judgement: Good judgement present (Psych) Coding Level of Care Code New Pt Prev Care 18-39yr(81641 Diagnoses Annual physical exam Z00.00 Elevated blood pressure reading without diagnosis of hypertension R03.0 S/P ACL reconstruction Z98.890 Additional Codes RASHAAD-7 Assessment Billing - RASHAAD-7 Assessment Tool: RASHAAD-7 Assessment 76460 ([id number]) PHQ-9 - 68349 - PHQ-9 Billing: Yes ([id number]) Assessment & Plan Assessment & Plan (1) Annual physical exam: Code(s): Z00.00 - Encounter for general adult medical examination without abnormal findings Category: Medical Plan: Patient is up-to-date on all recommended routine screenings and vaccinations for his age. Healthy diet and regular exercise is encouraged. (2) Elevated blood pressure reading without diagnosis of hypertension: Code(s): R03.0 - Elevated blood-pressure reading, without diagnosis of hypertension Category: Medical Plan: Blood pressure elevated on the exam today and patient has a history of higher blood pressures recorded and different offices. I did recommend starting a blood pressure medication however patient would like to hold off and work on dietary and lifestyle modification prior to initiation of medication. Avoid salt intake and encourage healthy diet and regular exercise. We will plan to follow up in 2 months to repeat blood pressure. (3) S/P ACL reconstruction: Code(s): Z98.890 - Other specified postprocedural states Category: Surgical Plan: Continue to follow with physical therapy and orthopedic surgeon. Plan The patient will undergo blood work to assess cholesterol levels and other routine parameters, with instructions to fast for 8 to 10 hours prior to the test. Dietary modifications are recommended to manage hypertension, including reducing intake of salt and fatty foods, and increasing physical activity. The patient is advised to monitor blood pressure regularly and return for a follow- up in two months to reassess blood pressure levels and evaluate the need for medication. This note was constructed using voice recognition software. While every effort has been made to ensure accuracy and cardiology manager, still areas may have been included sometimes these areas may affect the content or meeting of the given sy mptoms. Total time spent caring for the patient today was 30 minutes. This includes time spent before the visit reviewing the chart, time spent during the visit, and time spent after the visit and documentation. Patient was informed and verbally consented to the use of an ambient scribe for clinic note documentation during this visit. Orders: Orders Complete Blood Count Auto Diff Today Z13.0 - Encounter for screening for diseases of the blood and blood-forming organs and certain disorders involving the immune mechanism, Z13.1 - Encounter for screening for diabetes mellitus, Z13.220 - Encounter for screening for lipoid disorders Comprehensive Met. Panel Today Z13.1 - Encounter for screening for diabetes mellitus TSH reflex Free T4 Today Z13.29 - Encounter for screening for other suspected endocrine disorder Vitamin B12 and Folate Today Z13.21 - Encounter for screening for nutritional disorder Lipid Panel Today Z13.220 - Encounter for screening for lipoid disorders Vitamin D 25-OH Total Today Z13.21 - Encounter for screening for nutritional disorder Medications: Discontinued ibuprofen Discontinued Reason: Patient no longer taking 800 mg PO TID PRN 90 tabs 0RF for pain oxycodone-acetaminophen 5-325 mg Partial Fill upon patient request. Discontinued Reason: Patient no longer taking 1 tab PO Q4-6H 7 days PRN 42 tabs 0RF pain
[2025-05-26 11:37] VITALS: BP 144/60; PULSE 76; O2SAT 98; BMI 28.4
[2025-05-26 12:02] VITALS: BP 138/92
== END 2025-05-26 12:19 | disposition home or self-care (01) ==
LOC: HO.HMCH 11:29
DX: Z00.00 Encounter for general adult medical examination without abnormal findings (principal); R03.0 Elevated blood-pressure reading, without diagnosis of hypertension; Z98.890 Other specified postprocedural states

== ENCOUNTER 2025-07-11 17:48 | Emergency (ER) | payer OTHER, SELFPAY ==
--- NOTE | ~2025-07-11 | XR_ITS ---
CLINICAL HISTORY: pain 1 view abdomen Comparison: None provided Findings: Normal bowel gas pattern. No abnormal calcifications. No pneumoperitoneum or pneumatosis. No acute fractures. Impression: 1. Moderate stool. This document has been electronically signed by: Simeon Bonner MD on 07/12/2025 02:01:09
[2025-07-11 18:04] VITALS: BP 182/112; PULSE 72; RESP 16; TEMP 36.7; O2SAT 95; BMI 28.2
--- NOTE | 2025-07-11 18:04 | ED.GENADULT ---
HPI - General Adult General Chief complaint: Abdominal Pain Stated complaint: lower abd pain, cold sweats Time Seen by Provider: 07/12/25 00:00 Source: patient Limitations: language barrier History of Present Illness ED Provider: Liane Braun PA-C HPI narrative: 40-year-old otherwise healthy male presents with the abdominal pain x1 week. Pain over lower abdomen, right greater than left, unable to describe the nature of his discomfort. Denies distention, constipation, diarrhea, inability to pass flatus. He states he had a normal bowel movement today. Associated nausea and dyspepsia, his symptoms worsen with the eating. Denies focal right upper quadrant pain or radiation to mid back, no fevers. Related Data Previous Rx's ?Medication ?Instructions ?Recorded cholecalciferol (vitamin D3) 25 25 mcg PO DAILY #90 caps 05/26/25 mcg (1,000 unit) capsule docusate sodium 100 mg capsule 100 mg PO BID #10 caps 07/12/25 (Colace) polyethylene glycol 3350 17 See Rx Instructions .Route 07/12/25 gram/dose oral powder (Miralax) .COMPLEX #238 grams sucralfate 1 gram tablet (Carafate) 1 g PO TID PRN dyspepsia #10 tabs 07/12/25 Allergies Allergy/AdvReac Type Severity Reaction Status Date / Time No Known Allergies Allergy Verified 07/11/25 18:06 Review of Systems Review of Systems: Yes all other systems are reviewed and are negative Constitutional: Constitutional: Denies fatigue and Denies fever(s) Cardiovascular: Cardiovascular: Denies chest pain and Denies dyspnea Respiratory: Respiratory: Denies dyspnea Gastrointestinal: Gastrointestinal: Reports abdominal pain, Denies constipation, Denies diarrhea, Reports nausea and Denies vomiting Endocrine: Endocrine: Denies fatigue [facility] Past Medical History Attestation statement: The following information was validated with the patient. Medical History Hereditary spherocytosis Surgical History History of cholecystectomy H/O splenectomy Family History Family History Father Lung cancer Mother Pancreatic cancer Social History Social History Patient Tobacco Use Status: Never used Tobacco Current occupational status: employed Cognitive needs: No Hearing needs: No Vision needs: No Physical Exam ED Vital Signs: Vital Signs - 24 hr 07/11/25 18:04 07/12/25 00:44 Temperature 98.1 F 97.9 F Pulse Rate 72 76 Respiratory Rate 16 16 Blood Pressure 182/112 H 148/92 H Pulse Oximetry 95 97 Oxygen Delivery Method Room Air Room Air BMI result Body Mass Index 28.2 Const Other: Alert well-appearing Orientation/consciousness: patient oriented x3 Resp Effort & Inspection: normal respiratory effort Cardio Other: Normal peripheral perfusion GI Other: Abdomen is soft, nontender no guarding no distention Skin Other: Warm dry no rash Neuro General: patient oriented x3, gait normal, no focal motor deficits and CN's II-XI intact bilaterally Psych Other: Cooperative Course Course Course Narrative: Rapid medical examination performed in triage by Katia Aburto PA-C. Patient is a 40 year old assigned male at presenting to the emergency department with abdominal pain. Detailed physical exam and review of systems are deferred to the cash register balancer. Labs ordered. Patient placed back in the waiting room pending room availability and results. Medications Administered Discontinued Medications Generic Name Dose Route Start Last Admin Trade Name Freq PRN Reason Stop Dose Admin Sucralfate 1 gm 07/12/25 01:11 07/12/25 01:29 Sucralfate Oral Suspension 1 Gm/10 Ml Oral.Susp PO 07/12/25 01:12 1 gm ONCE ONE Administration Medical Decision Making Medical Decision Making [facility] Narrative: 40-year-old otherwise healthy male presents with the abdominal pain x1 week. Pain over lower abdomen, right greater than left, unable to describe the nature of his discomfort. Denies distention, constipation, diarrhea, inability to pass flatus. He states he had a normal bowel movement today. Associated nausea and dyspepsia, his symptoms worsen with the eating. Denies focal right upper quadrant pain or radiation to mid back, no fevers. No chronic issues History: Per patient I have considered the following differential diagnoses: Biliary colic, cholecystitis, gastritis/GERD, pancreatitis, constipation Plan: Patient has some degree of upper abdominal discomfort, given dyspepsia and postprandial symptoms, I am considering underlying biliary versus gastric versus pancreatic a etiology as cause for his symptoms. Screening labs obtained and are unremarkable, I do not feel he requires a dedicated right upper quadrant ultrasound. His initial complaint is for lower abdominal pain, again his exam was unremarkable, with normal labs, he could be constipated, which is triggering dyspepsia. We will obtain a KUB. Giving Carafate. I have independently reviewed the following tests: Labs: No leukocytosis, not anemic, no electrolyte abnormality, LFTs normal KUB: Comparison: None provided Findings: Normal bowel gas pattern. No abnormal calcifications. No pneumoperitoneum or pneumatosis. No acute fractures. Impression: 1. Moderate stool. Differential Diagnosis Differential Diagnoses: The differential diagnosis associated with the presentation includes See medical decision-making Admission/Observation Consideration of admission/observation: Escalation of care including admission/observation considered Not applicable Lab Data MDM Lab Attestation statement: I reviewed the patient's lab results. 07/11/25 18:49 07/11/25 18:49 Labs: Lab Results 07/11/25 Range/Units 18:49 WBC 12.1 H (4.8-10.8) X10*3/uL RBC 5.50 (4.60-5.80) X10*6/uL Hgb 16.0 (14.0-18.0) g/dl Hct 44.3 (42.0-52.0) % MCV 80.5 (80.0-98.0) fL MCH 29.1 (27.0-33.0) pg MCHC 36.1 H (31.0-36.0) g/dl RDW 12.6 (11.0-16.0) % Plt Count 421 H (160-400) X10*3/uL MPV 10.2 (9.4-12.4) fL Immature Gran % (Auto) 1.1 H (0.0-0.4) % Neut % (Auto) 55.7 (45-73) % Lymph % (Auto) 32.9 (20-40) % [place] % (Auto) 8.9 (2-11) % Eos % (Auto) 0.7 (0-4) % Baso % (Auto) 0.7 (0-2) % Lymph # (Auto) 4.0 (1.2-4.9) X10*3/uL [place] # (Auto) 1.1 (0.1-1.2) X10*3/uL Eos # (Auto) 0.1 (0.0-0.4) X10*3/uL Baso # (Auto) 0.1 (0.0-0.2) X10*3/uL Abs Immat Gran (auto) 0.13 H (0.00-0.03) X10*3/uL Absolute Neuts (auto) 6.8 (2.0-8.3) x10*3/uL Absolute Nucleated RBC 0.000 (0.0-0.012) X10*3/uL Nucleated RBC % (auto) 0.0 (0.0-0.2) /100WBC Sodium 144 (135-145) mmol/L Potassium 4.3 (3.3-5.1) mmol/L Chloride 109 H (96-108) mmol/L Carbon Dioxide 26 (22-29) mmol/L Anion Gap 13 (12-20) BUN 17 H (9-16) mg/dL Creatinine 1.33 (0.5-1.4) mg/dL Estim Creat Clear Calc 73.9 Estimated GFR 60 Random Glucose 89 (60-115) mg/dL Calcium 9.9 D (8.4-10.2) mg/dL Total Bilirubin 0.8 (0.0-1.0) mg/dL AST 33 (5-37) U/L ALT 58 H (0-40) U/L Alkaline Phosphatase 60 (39-117) U/L Total Protein 7.3 (6.5-8.0) g/dL Albumin 4.5 (3.5-5.0) g/dL Lipase 23 (8-78) U/L Urine Color Yellow Urine Appearance Clear Urine pH 6.0 (5.0-9.0) Ur Specific [place] 1.020 (1.005-1.025) Urine Protein Negative (Neg-Trace) mg/dL Urine Glucose (UA) Negative (Negative) mg/dL Urine Ketones Negative (Negative) mg/dL Urine Blood Negative (Negative) Urine Nitrite Negative (Negative) Ur Leukocyte Esterase Negative (Negative) Radiology Impression Discussion of test interpretation with radiology: I have reviewed the radiologist's reading. Discharge Plan Discharge Clinical Impression: Constipation, GERD (gastroesophageal reflux disease) Patient Disposition: Home, Self-Care Instructions: Constipation (ED), GERD (Gastroesophageal Reflux Disease) (ED), GERD (Gastroesophageal Reflux Disease) (DC) Additional Instructions: All of your screening labs were completely normal, including your liver function tests. The x-ray revealed that you were considerably constipated. This can cause indigestion and acid reflux symptoms. See home care instructions. For the constipation, take the Colace twice a day. Take the MiraLax 4 to 5 times a day until you begin having multiple large volume bowel movements. Use the Carafate as needed for your indigestion related symptoms. Follow up with your primary care provider as needed. Prescriptions: New sucralfate [Carafate] 1 gram tablet 1 g PO TID PRN (Reason: dyspepsia) Qty: 10 0RF polyethylene glycol 3350 [Miralax] 17 gram/dose powder See Rx Instructions .ROUTE .COMPLEX Qty: 238 0RF Rx Instructions: 17 g orally per your discharge instructions. docusate sodium [Colace] 100 mg capsule 100 mg PO BID Qty: 10 0RF No Action cholecalciferol (vitamin D3) 25 mcg (1,000 unit) capsule 25 mcg PO DAILY Qty: 90 3RF Interventions: ED Discharge Assessment Last Done: 07/12/25 03:43 Discharge Date/Time: 07/12/25 03:43 Print Language: Wolof
[2025-07-11 19:01] LABS: MANUAL DIFF FLAG NO
[2025-07-11 19:03] LABS: Hematocrit 44.3 % (42.0-52.0); Hemoglobin 16.0 g/dl (14.0-18.0); Imm Gran Abs Auto 0.13 X10*3/uL (0.00-0.03); Imm Gran Pct Auto 1.1 % (0.0-0.4); Lymphocytes Absolute Auto 4.0 X10*3/uL (1.2-4.9); Mean Corpuscular HGB Conc 36.1 g/dl (31.0-36.0); Mean Corpuscular Hemoglobin 29.1 pg (27.0-33.0); Mean Corpuscular Volume 80.5 fL (80.0-98.0); NRBC Abs Auto 0.000 X10*3/uL (0.0-0.012); NRBC Pct Auto 0.0 /100WBC (0.0-0.2); Platelet Count 421 X10*3/uL (160-400); Red Blood Count 5.50 X10*6/uL (4.60-5.80); White Blood Count 12.1 X10*3/uL (4.8-10.8)
[2025-07-11 19:05] LABS: Appearance Urine Clear; Glucose Urine UA Negative (Negative); PH 6.0 (5.0-9.0); Specific Gravity - Urine 1.020 (1.005-1.025)
[2025-07-11 19:20] LABS: Alanine Aminotransferase 58 U/L (0-40); Albumin Level 4.5 g/dL (3.5-5.0); Alkaline Phosphatase 60 U/L (39-117); Anion Gap 13 (12-20); Aspartate Amino Transferase 33 U/L (5-37); Blood Urea Nitrogen 17 mg/dL (9-16); Calcium 9.9 mg/dL (8.4-10.2); Carbon Dioxide 26 mmol/L (22-29); Chloride 109 mmol/L (96-108); Creatinine Clr Calc Pharmacy 73.9; Estimated Glomerular Filt Rate 60; Lipase 23 U/L (8-78); Potassium 4.3 mmol/L (3.3-5.1); Sodium 144 mmol/L (135-145); Total Protein 7.3 g/dL (6.5-8.0)
[2025-07-12 00:44] VITALS: BP 148/92; PULSE 76; RESP 16; TEMP 36.6; O2SAT 97
[2025-07-12] MEDS: Sucralfate Oral Suspension 1 GM/10 ML ORAL.SUSP PO (01:29)
[2025-07-12 03:36] VITALS: BP 155/102; PULSE 75; RESP 18; TEMP 36.6; O2SAT 98
[2025-07-12 03:43] VITALS: BP 155/102; PULSE 75; RESP 18; TEMP 36.6; O2SAT 98
== END 2025-07-12 03:43 | disposition home or self-care (01) ==
PROVIDERS: Physician Assistant Medical; Emergency Provider Emergency Medicine
DX: K59.00 Constipation, unspecified (principal); K21.9 Gastro-esophageal reflux disease without esophagitis; R10.31 Right lower quadrant pain
CPT/HCPCS: 36415; 74018; 80053; 81003; 83690; 85025; 99283; 99284

== ENCOUNTER → 2025-07-12 01:11 | Outpatient (BNV) | payer OTHER, SELFPAY | PROVIDERS: Emergency Provider Emergency Medicine; Visit Provider Radiology Diagnostic Radiology | DX: R10.31 Right lower quadrant pain (principal); R10.32 Left lower quadrant pain | CPT/HCPCS: 74018 ==